=== PATIENT | female | born 1955 | race African-American/Black ===

== ENCOUNTER → 2016-12-30 | Emergency (ER) | payer MEDICARE, MEDICAID ==
[~2016-12-30] MED LIST: ALB5IS NEB; ASPI81CH43; CALCIUM CARBONATE VITAMIN D PO; CHOL400T PO; FLUT250M2 IN; GICOCKTAIL PO; LIS10T PO; LISI10TA6 PO; LOR05T PO; NIC21P TD; OME20GT PO; OXY5T PO; PRE5T GT
== END | disposition left against medical advice (07) ==
LOC: ER 22:10
DX: S61.432A Puncture wound without foreign body of left hand, initial encounter (principal); Z53.21 Procedure and treatment not carried out due to patient leaving prior to being seen by health care provider; X58.XXXA Exposure to other specified factors, initial encounter; Y93.89 Activity, other specified; Y99.8 Other external cause status; Y92.89 Other specified places as the place of occurrence of the external cause

== ENCOUNTER 2017-01-16 05:12 | Emergency (ER) | payer MEDICARE, MEDICAID ==
[~2017-01-16] VITALS: Ht 162.6 cm; Wt 70.3 kg
[2017-01-16 05:30] VITALS: BP 164/101
== END 2017-01-16 06:32 | disposition left against medical advice (07) ==
LOC: EDBD 05:12 → ER 05:12
DX: M54.2 Cervicalgia (principal); R51 Headache; Z53.21 Procedure and treatment not carried out due to patient leaving prior to being seen by health care provider

== ENCOUNTER 2017-05-11 17:51 | Emergency (ER) | payer MEDICARE, MEDICAID ==
[~2017-05-11] VITALS: Ht 160 cm; Wt 63.5 kg
[~2017-05-11 17:51] MED LIST changes: -LOR05T PO; +LORA-654 PO
[2017-05-11 18:24] VITALS: BP 175/96
[2017-05-11] MEDS ORDERED: PROMETHAZINE HCL 25 MG/ML 1ML IV ONE (18:30)
[2017-05-11] MEDS ORDERED: KETOROLAC TROMETH 30 MG/ML 1ML VIAL IV ONE (18:30)
== END 2017-05-11 19:31 | disposition home or self-care (01) ==
LOC: EDBD 17:51 → EDUNIT# 17:51 → ER 17:58
DX: J32.9 Chronic sinusitis, unspecified (principal); F17.210 Nicotine dependence, cigarettes, uncomplicated; M19.90 Unspecified osteoarthritis, unspecified site; I11.0 Hypertensive heart disease with heart failure; I50.9 Heart failure, unspecified; I25.2 Old myocardial infarction; T78.40XA Allergy, unspecified, initial encounter; J44.9 Chronic obstructive pulmonary disease, unspecified; I25.10 Atherosclerotic heart disease of native coronary artery without angina pectoris; Z79.82 Long term (current) use of aspirin; Z90.710 Acquired absence of both cervix and uterus; Z88.6 Allergy status to analgesic agent; Z79.899 Other long term (current) drug therapy; X58.XXXA Exposure to other specified factors, initial encounter
CPT/HCPCS: 70450; 96374; 96375; 99284; J1885; J2550

== ENCOUNTER 2018-03-24 06:39 | Emergency (ER) | payer MEDICARE, MEDICAID ==
[~2018-03-24] VITALS: Ht 175.3 cm; Wt 65.8 kg
[2018-03-24 06:53] VITALS: BP 126/84
[2018-03-24] MEDS ORDERED: KETOROLAC TROMETH 30 MG/ML 1ML VIAL IM ONE (07:15)
[2018-03-24] MEDS ORDERED: oxyCODONE ER 10 MG TAB PO ONE (07:15)
[2018-03-24] MEDS ORDERED: methylPREDNISolone SOD SUCC 125 MG/2 ML VL IM ONE (07:30)
== END 2018-03-24 09:08 | disposition home or self-care (01) ==
LOC: EDBD 06:39 → ER 06:39
DX: M25.461 Effusion, right knee (principal); M13.861 Other specified arthritis, right knee; I11.0 Hypertensive heart disease with heart failure; I50.9 Heart failure, unspecified; J44.9 Chronic obstructive pulmonary disease, unspecified; I25.2 Old myocardial infarction; I25.10 Atherosclerotic heart disease of native coronary artery without angina pectoris; F17.210 Nicotine dependence, cigarettes, uncomplicated; Z90.710 Acquired absence of both cervix and uterus; Z88.6 Allergy status to analgesic agent
CPT/HCPCS: 73562; 96372; 99284; J1885; J2930

== ENCOUNTER 2018-08-17 03:18 | Emergency (ER) | payer MEDICARE, MEDICAID ==
[~2018-08-17] VITALS: Ht 167.6 cm; Wt 81.6 kg
[2018-08-17] MEDS ORDERED: SODIUM CHLORIDE 0.9% 1,000 ML IV ONE (07:46)
[2018-08-17] MEDS ORDERED: KETOROLAC TROMETH 30 MG/ML 1ML VIAL IV ONE (08:00)
[2018-08-17] MEDS ORDERED: PROMETHAZINE HCL 25 MG/ML 1ML IV PRN (08:00)
[2018-08-17 08:17] LABS: Eosinophils # (auto) 0 uL; Monocytes # (auto) 0.4 uL; Neutrophils # (auto) 3.5 uL
[2018-08-17 08:19] LABS: Basophils # (auto) 0.1 uL; Basophils % (auto) 1.1 % (0.0-2.0); Eosinophils % (auto) 0.5 % (0.0-7.0); Hematocrit 40.2 % (36.0-46.0); Hemoglobin 12.8 g/dL (12.2-16.2); Lymphocytes % (auto) 20.8 % (10.0-50.0); Mean Corpuscular Hemoglobin 25.3 pg (28.0-32.0); Mean Corpuscular Hgb Conc. 31.8 g/dL (32.0-36.0); Mean Corpuscular Volume 79.6 fL (80.0-100.0); Monocytes % (auto) 7.6 % (0.0-12.0); Nucleated Red Blood Cells % 0.2 %; Platelet Count (auto) 143 10^3/uL (140-450); Red Blood Cells 5.05 10^6/uL (4.0-5.20); Red Cell Distribution Width 14.4 % (11.8-14.3)
[2018-08-17 08:31] LABS: Albumin 3.3 g/dL (3.4-5.0); Anion Gap 8 (5-15); Aspartate Aminotransferase 22 U/L (15-37); Blood Urea Nitrogen 12 mg/dL (7-18); Calcium 8.5 mg/dL (8.5-10.1); Carbon Dioxide 22 mmol/L (21-32); Chloride 111 mmol/L (98-107); GFR African American 122 mL/min; GFR Non-African American 101 mL/min; Glucose 92 mg/dL (74-106); Lipase 191 U/L (73-393); Magnesium 2.3 mg/dL (1.6-2.6); Potassium 3.6 mmol/L (3.5-5.1); Sodium 141 mmol/L (136-145)
[2018-08-17 08:34] LABS: Alanine Aminotransferase 34 U/L (13-56); Alkaline Phosphatase 53 U/L (45-117); Bilirubin, Total 0.4 mg/dL (0.2-1.0)
[2018-08-17] MEDS ORDERED: LORazepam 0.5 MG TAB PO ONE (10:30)
[2018-08-17] MEDS ORDERED: cloNIDine HCL 0.1 MG TAB PO ONE (10:30)
[2018-08-17 11:05] VITALS: BP 152/89
[2018-08-17] MEDS ORDERED: MORPHINE SULFATE 4 MG/ML SYR/VIAL ONE (11:23)
[2018-08-17] MEDS ORDERED: NALBUPHINE HCL 10 MG/1ml INJECTION ONE (11:27)
[2018-08-17] MEDS ORDERED: NALBUPHINE HCL 10 MG/1ml INJECTION IV ONE (11:30)
[2018-08-17 11:35] LABS: Urine Bacteria FEW /hpf (None Seen); Urine Blood Negative /uL (Negative); Urine Mucus FEW (None Seen); Urine Specific Gravity 1.016 (1.001-1.035); Urine WBC 1 /hpf (0 - 5)
== END 2018-08-17 10:16 | disposition short-term general hospital (02) ==
LOC: EDBD 03:18 → EDSEX 03:18 → ER 03:18
DX: S22.089A Unspecified fracture of T11-T12 vertebra, initial encounter for closed fracture (principal); J44.9 Chronic obstructive pulmonary disease, unspecified; F41.9 Anxiety disorder, unspecified; I11.0 Hypertensive heart disease with heart failure; I50.9 Heart failure, unspecified; I25.2 Old myocardial infarction; F17.210 Nicotine dependence, cigarettes, uncomplicated; Z88.1 Allergy status to other antibiotic agents; Z90.710 Acquired absence of both cervix and uterus; Z88.6 Allergy status to analgesic agent; Z79.82 Long term (current) use of aspirin; Z79.899 Other long term (current) drug therapy; V47.6XXA Car passenger injured in collision with fixed or stationary object in traffic accident, initial encounter; Y93.89 Activity, other specified; Y92.488 Other paved roadways as the place of occurrence of the external cause; Y99.8 Other external cause status
CPT/HCPCS: 36415; 72070; 72100; 72128; 72170; 80053; 81001; 83690; 83735; 85025; 96374; 96375; 99285; J1885; J2270; J2300; J2550; J7030

== ENCOUNTER 2019-05-07 19:18 | Emergency (ER) | payer OTHER, MEDICAID ==
[~2019-05-07] VITALS: Ht 162.6 cm; Wt 74.8 kg
[~2019-05-07 19:18] MED LIST changes: +AMIO200T33 PO; +APIX5TAB OR; -LIS10T PO; -LORA-654 PO; +LORA0.5T12 PO
[2019-05-07] MEDS ORDERED: methylPREDNISolone SOD SUCC 125 MG/2 ML VL IV ONE (20:00)
[2019-05-07] MEDS ORDERED: IPRATROPIUM BROM 0.5 MG/2.5ML INH SOL NEB ONE (20:15)
[2019-05-07] MEDS ORDERED: ALBUTEROL SULF 2.5 MG/0.5ML(0.5%) NEB SOLN NEB ONE (20:15)
[2019-05-07 21:22] LABS: Basophils # (auto) 0 uL; Eosinophils # (auto) 0 uL; Eosinophils % (auto) 0.5 % (0.0-7.0); Hemoglobin 12.4 g/dL (12.2-16.2); Monocytes # (auto) 0.3 uL; Neutrophils # (auto) 2.3 uL; Neutrophils % (auto) 63.9 % (37.0-80.0)
[2019-05-07 21:24] LABS: Basophils % (auto) 0.4 % (0.0-2.0); Hematocrit 39.5 % (36.0-46.0); Lymphocytes % (auto) 26.3 % (10.0-50.0); Mean Corpuscular Hemoglobin 24.9 pg (28.0-32.0); Mean Corpuscular Hgb Conc. 31.5 g/dL (32.0-36.0); Monocytes % (auto) 8.9 % (0.0-12.0); Nucleated Red Blood Cells % 0.4 %; Platelet Count (auto) 165 10^3/uL (140-450); White Blood Cell 3.6 10^3/uL (4.4-10.8)
[2019-05-07 21:26] LABS: INR 0.98 (0.9-1.15); Partial Thromboplastin Time 29.4 sec (23.64-32.05)
[2019-05-07] MEDS ORDERED: FUROSEMIDE 40 MG/4 ML VIAL IV ONE (21:30)
[2019-05-07 21:33] LABS: Alanine Aminotransferase 39 U/L (13-56); Albumin 3.4 g/dL (3.4-5.0); Anion Gap 6 (5-15); Blood Urea Nitrogen 14 mg/dL (7-18); Calcium 8.5 mg/dL (8.5-10.1); Carbon Dioxide 28 mmol/L (21-32); Chloride 108 mmol/L (98-107); Glucose 97 mg/dL (74-106); Potassium 3.1 mmol/L (3.5-5.1); Sodium 142 mmol/L (136-145)
[2019-05-07 21:40] LABS: Alkaline Phosphatase 65 U/L (45-117); Aspartate Aminotransferase 26 U/L (15-37); BUN/Creatinine Ratio 15.4; Bilirubin, Total 0.4 mg/dL (0.2-1.0); GFR African American 80 mL/min; GFR Non-African American 66 mL/min; Total Protein 7.4 g/dL (6.4-8.2)
[2019-05-07] MEDS ORDERED: HYDROmorphone HCL 2 MG/ML VL IV ONE (22:00)
[2019-05-07] MEDS ORDERED: ONDANSETRON HCL 4 MG/2 ML VIAL IV ONE (22:00)
[2019-05-07 22:19] LABS: Urine Bacteria NONE SEEN /hpf (None Seen); Urine Blood Negative /uL (Negative); Urine Mucus MODERATE (None Seen); Urine Specific Gravity 1.021 (1.001-1.035); Urine WBC 10 /hpf (0 - 5)
[2019-05-07] MEDS ORDERED: LABETALOL HCL 5 MG/ML ML 20ML VIAL IV ONE (23:15)
[2019-05-08 00:32] VITALS: BP 149/89
== END 2019-05-08 00:39 | disposition home or self-care (01) ==
LOC: EDBD 19:18 → ER 19:22
DX: I16.0 Hypertensive urgency (principal); N39.0 Urinary tract infection, site not specified; G89.4 Chronic pain syndrome; I48.91 Unspecified atrial fibrillation; I11.0 Hypertensive heart disease with heart failure; I50.9 Heart failure, unspecified; J44.9 Chronic obstructive pulmonary disease, unspecified; I25.2 Old myocardial infarction; F17.210 Nicotine dependence, cigarettes, uncomplicated; Z86.73 Personal history of transient ischemic attack (TIA), and cerebral infarction without residual deficits; Z97.10 Presence of artificial limb (complete) (partial), unspecified; Z88.6 Allergy status to analgesic agent; Z88.1 Allergy status to other antibiotic agents
CPT/HCPCS: 36415; 71045; 71250; 80053; 81001; 83880; 84484; 85025; 85379; 85610; 85730; 86141; 96374; 96375; 99284; J1170; J1940; J2405; J2930; J7611; J7644

== ENCOUNTER 2022-07-29 09:02 | Inpatient (IN) | payer OTHER, MEDICAID ==
[~2022-07-29] VITALS: Ht 160 cm; Wt 75.0 kg
[~2022-07-29 09:02] MED LIST changes: +LISI-716 PO; -LISI10TA6 PO; -LORA0.5T12 PO; +LORA0.5T20 PO
[2022-07-29 09:55] LABS: Basophils # (auto) 0 10 ^3/uL (0-0.2); Basophils % (auto) 0.3 % (0.0-2.0); Eosinophils # (auto) 0 10 ^3/uL (0-0.8); Hemoglobin 12.2 g/dL (12.2-16.2); Neutrophils # (auto) 3.8 10 ^3/uL (1.6-8.6)
[2022-07-29 09:59] LABS: Eosinophils % (auto) 0.2 % (0.0-7.0); Hematocrit 39.1 % (36.0-46.0); Lymphocytes # (auto) 0.8 10 ^3/uL (0.4-5.4); Lymphocytes % (auto) 15.5 % (10.0-50.0); Mean Corpuscular Hemoglobin 23.6 pg (28.0-32.0); Mean Corpuscular Hgb Conc. 31.3 g/dL (32.0-36.0); Mean Corpuscular Volume 75.6 fL (80.0-100.0); Monocytes # (auto) 0.5 10 ^3/uL (0-1.3); Monocytes % (auto) 9.7 % (0.0-12.0); Neutrophils % (auto) 74.3 % (37.0-80.0); Red Blood Cells 5.18 10^6/uL (4.0-5.20); Red Cell Distribution Width 15.2 % (11.8-14.3); White Blood Cell 5.1 10^3/uL (4.4-10.8)
[2022-07-29] MEDS ORDERED: SODIUM CHLORIDE 0.9% 1,000 ML IV ONE (11:00)
[2022-07-29] MEDS ORDERED: SODIUM CHLORIDE 0.9% 500 ML IVB ONE (11:00)
[2022-07-29] MEDS ORDERED: ONDANSETRON HCL 4 MG/2 ML VIAL IV ONE (11:00)
[2022-07-29 11:28] LABS: INR 1.06 (0.9-1.15); Partial Thromboplastin Time 26.8 sec (24.6-33.4)
[2022-07-29 11:31] LABS: Alanine Aminotransferase 18 U/L (13-56); Albumin 3.5 g/dL (3.4-5.0); Anion Gap 9 (5-15); Aspartate Aminotransferase 17 U/L (15-37); BUN/Creatinine Ratio 15.2; Blood Urea Nitrogen 12 mg/dL (7-18); Calcium 8.6 mg/dL (8.5-10.1); Carbon Dioxide 24 mmol/L (21-32); Chloride 103 mmol/L (98-107); GFR African American 93 mL/min; GFR Non-African American 77 mL/min; Glucose 113 mg/dL (74-106); Lipase 189 U/L (73-393); Potassium 3.3 mmol/L (3.5-5.1); Sodium 136 mmol/L (136-145)
[2022-07-29 11:33] LABS: Alkaline Phosphatase 63 U/L (45-117); Bilirubin, Total 0.3 mg/dL (0.2-1.0); Total Protein 7.8 g/dL (6.4-8.2)
[2022-07-29] MEDS ORDERED: [UNRECOGNIZED DRUG - CODE] PO (15:12)
[2022-07-29] MEDS ORDERED: VALS320T32 PO (15:12)
[2022-07-29] MEDS ORDERED: SUL500T PO (15:12)
[2022-07-29] MEDS ORDERED: AMLO-489 PO (15:12)
[2022-07-29] MEDS ORDERED: HYDR12.55 PO (15:12)
[2022-07-29] MEDS: SODIUM CHLORIDE 0.9% 1,000 ML IV SCH (15:15)
[2022-07-29] MEDS ORDERED: POTASSIUM CHL 20 Meq TABLET PO ONE (15:15)
[2022-07-29] MEDS ORDERED: PANTOPRAZOLE 40 MG/10 ML VIAL INJ IV ONE (15:30)
[2022-07-29] MEDS ORDERED: KETOROLAC TROMETH 30 MG/ML 1ML VIAL IV PRN (15:30)
[2022-07-29] MEDS ORDERED: NITROGLYCERIN 0.4 MG SL TAB SL PRN (15:30)
[2022-07-29] MEDS ORDERED: hydrALAZINE HCL 20 MG/ML VL IV PRN (15:30)
[2022-07-29] MEDS ORDERED: ALBUTEROL SULF 2.5 MG/0.5ML(0.5%) NEB SOLN NEB PRN (15:30)
[2022-07-29 15:36] VITALS: BP 152/68
[2022-07-29] MEDS ORDERED: ACETAMINOPHEN 500 MG TAB PO PRN (15:45)
[2022-07-29 15:53] LABS: Urine Bacteria MOD /hpf (None Seen); Urine Blood 1+ /uL (Negative); Urine Mucus FEW (None Seen); Urine Specific Gravity 1.011 (1.001-1.035); Urine WBC 49 /hpf (0 - 5)
[2022-07-29] MEDS ORDERED: REMDESIVIR PER PHARMACY 0 ML IV SCH (16:15)
[2022-07-29] MEDS ORDERED: REMDESIVIR 200 MG in NS 210ml LOADING DOSE ADULT IV ONE (18:00)
[2022-07-29 18:05] LABS: Cholesterol 129 mg/dL (< 200); HDL Cholesterol 58 mg/dL (40-59); LDL Cholesterol 69 mg/dL (< 100); Triglycerides 105 mg/dL (< 150)
[2022-07-29 18:06] LABS: CRP High Sensitivity > 0.950 mg/dL (< 0.3)
[2022-07-29 18:17] LABS: % Iron Saturation 6.9 % (15-50)
[2022-07-29] MEDS ORDERED: HEPARIN SODIUM (PORCINE) 5000 UNITS/ML 1ML VIAL SC SCH (22:00)
[2022-07-29] MEDS: BUDESONIDE (INHALATION) 180 MCG IH IN SCH (22:12)
[2022-07-29] MEDS: ALBUTEROL SULF HFA 90MCG INH 200DOSE IN PRN (22:13)
[2022-07-29] MEDS: HEPARIN SODIUM (PORCINE) 5000 UNITS/ML 1ML VIAL SC SCH (22:16)
[2022-07-29] MEDS: FLUTICASONE IN SCH (23:45)
[2022-07-29] MEDS: SALMETEROL IN SCH (23:45)
[2022-07-30] VITALS (8 sets, daily range): BP systolic 127–154; BP diastolic 70–82
[2022-07-30] MEDS: SODIUM CHLORIDE 0.9% 1,000 ML IV SCH ×3 (01:40→20:50)
[2022-07-30] MEDS: HEPARIN SODIUM (PORCINE) 5000 UNITS/ML 1ML VIAL SC SCH ×3 (06:25→22:02)
[2022-07-30 07:33] LABS: Hematocrit 38.6 % (36.0-46.0); Mean Corpuscular Hemoglobin 23.4 pg (28.0-32.0); Mean Corpuscular Hgb Conc. 31.2 g/dL (32.0-36.0); Red Blood Cells 5.15 10^6/uL (4.0-5.20); Red Cell Distribution Width 14.8 % (11.8-14.3); White Blood Cell 3.3 10^3/uL (4.4-10.8)
[2022-07-30 07:46] LABS: Potassium 3.4 mmol/L (3.5-5.1)
[2022-07-30 07:53] LABS: Albumin 3.4 g/dL (3.4-5.0); BUN/Creatinine Ratio 15.3; Calcium 8.7 mg/dL (8.5-10.1)
[2022-07-30 08:12] LABS: Basophils % (manual) 0 (0.0-2.0); Blast Cells 0; Eosinophils % (manual) 0 (0-7); Metamyelocytes % 0; Promyelocytes % 0
[2022-07-30 08:16] LABS: Bilirubin, Total 0.5 mg/dL (0.2-1.0); Total Protein 7.3 g/dL (6.4-8.2)
[2022-07-30 08:49] LABS: Band Neutrophils % (manual) 5; Lymphocytes % (manual) 24 (10.0-50.0); Monocytes % (manual) 13 (0-12); Myelocytes % 1; Reactive Lymphocytes 7
[2022-07-30] MEDS: BUDESONIDE (INHALATION) 180 MCG IH IN SCH ×2 (09:19→18:59)
[2022-07-30] MEDS: ALBUTEROL SULF HFA 90MCG INH 200DOSE IN PRN ×2 (09:19→19:00)
[2022-07-30] MEDS ORDERED: VALSARTAN HYDROCHLOROTHIAZIDE PO SCH (10:00)
[2022-07-30] MEDS: SALMETEROL IN SCH ×2 (10:00→22:17)
[2022-07-30] MEDS: ASPirin 81 mg TAB PO SCH (10:00)
[2022-07-30] MEDS: PANTOPRAZOLE 40 MG/10 ML VIAL INJ IV SCH (10:00)
[2022-07-30] MEDS: FLUTICASONE IN SCH ×2 (10:00→22:17)
[2022-07-30] MEDS ORDERED: amLODIPine BESYLATE 5 MG TAB PO SCH (10:00)
[2022-07-30] MEDS: LISINOPRIL 10 MG TAB PO SCH (10:00)
[2022-07-30] MEDS ORDERED: AMLODIPINE BESYLATE VALSARTAN PO SCH (10:00)
[2022-07-30] MEDS: DexAMETHasone SOD PHOS 10MG/1ML VIAL INJ IV SCH (10:36)
[2022-07-30] MEDS: HCTZ 25 MG TAB PO SCH (10:40)
[2022-07-30] MEDS: NICOTINE 7MG/24HR TOPICAL PATCH TD SCH (10:41)
[2022-07-30] MEDS: REMDESIVIR 100mg 100 MG in SODIUM CHL 0.9% 230 ML IV SCH (15:00)
[2022-07-30 15:06] LABS: Hepatitis C Antibody Positive (Negative)
[2022-07-30] MEDS ORDERED: HYDROmorphone HCL 2 MG/ML VL/or syr IV PRN ×2 (15:30)
[2022-07-30] MEDS: amLODIPine BESYLATE 5 MG TAB PO SCH (20:50)
[2022-07-30] MEDS ORDERED: PANTOPRAZOLE 40 MG TAB PO SCH (22:00)
[2022-07-31 05:12] VITALS: BP 133/78
[2022-07-31 05:31] LABS: Basophils # (auto) 0 10 ^3/uL (0-0.2); Basophils % (auto) 0.2 % (0.0-2.0); Eosinophils # (auto) 0 10 ^3/uL (0-0.8); Lymphocytes # (auto) 0.7 10 ^3/uL (0.4-5.4); Mean Corpuscular Volume 75.5 fL (80.0-100.0); Monocytes # (auto) 0.3 10 ^3/uL (0-1.3); White Blood Cell 2.1 10^3/uL (4.4-10.8)
[2022-07-31 05:34] LABS: Hematocrit 38.3 % (36.0-46.0); Hemoglobin 11.8 g/dL (12.2-16.2); Lymphocytes % (auto) 36.2 % (10.0-50.0); Mean Corpuscular Hemoglobin 23.2 pg (28.0-32.0); Mean Corpuscular Hgb Conc. 30.8 g/dL (32.0-36.0); Monocytes % (auto) 13.6 % (0.0-12.0); Red Blood Cells 5.07 10^6/uL (4.0-5.20); Red Cell Distribution Width 14.8 % (11.8-14.3)
[2022-07-31 05:50] LABS: Albumin 3.3 g/dL (3.4-5.0); Calcium 9.1 mg/dL (8.5-10.1); Potassium 4.2 mmol/L (3.5-5.1)
[2022-07-31 05:53] LABS: BUN/Creatinine Ratio 20.3
[2022-07-31 05:56] LABS: Bilirubin, Total 0.3 mg/dL (0.2-1.0); Total Protein 6.9 g/dL (6.4-8.2)
[2022-07-31] MEDS: HEPARIN SODIUM (PORCINE) 5000 UNITS/ML 1ML VIAL SC SCH ×3 (06:10→22:00)
[2022-07-31] MEDS: ALBUTEROL SULF HFA 90MCG INH 200DOSE IN PRN ×2 (06:43→22:42)
[2022-07-31] MEDS: BUDESONIDE (INHALATION) 180 MCG IH IN SCH ×2 (06:43→22:43)
[2022-07-31 09:00] VITALS: BP 130/69
[2022-07-31] MEDS: SALMETEROL IN SCH (10:00)
[2022-07-31] MEDS: FLUTICASONE IN SCH (10:00)
[2022-07-31] MEDS: LISINOPRIL 10 MG TAB PO SCH (10:00)
[2022-07-31] MEDS: PANTOPRAZOLE 40 MG/10 ML VIAL INJ IV SCH (11:49)
[2022-07-31] MEDS: DexAMETHasone SOD PHOS 10MG/1ML VIAL INJ IV SCH (11:49)
[2022-07-31] MEDS: ASPirin 81 mg TAB PO SCH (11:50)
[2022-07-31] MEDS: HCTZ 25 MG TAB PO SCH (11:51)
[2022-07-31] MEDS: amLODIPine BESYLATE 5 MG TAB PO SCH (11:52)
[2022-07-31] MEDS: NICOTINE 7MG/24HR TOPICAL PATCH TD SCH (11:53)
[2022-07-31] MEDS: SODIUM CHLORIDE 0.9% 1,000 ML IV SCH (12:40)
[2022-07-31 13:00] VITALS: BP 138/79
[2022-07-31] MEDS: REMDESIVIR 100mg 100 MG in SODIUM CHL 0.9% 230 ML IV SCH (16:32)
[2022-07-31] MEDS: HYDROmorphone HCL 2 MG/ML VL/or syr IV PRN ×2 (16:50→19:52)
[2022-07-31 17:00] VITALS: BP 147/80
[2022-07-31 20:00] VITALS: BP 138/78
[2022-07-31 22:00] VITALS: BP 138/78
[2022-08-01] VITALS (8 sets, daily range): BP systolic 137–152; BP diastolic 79–89
[2022-08-01] MEDS: HYDROmorphone HCL 2 MG/ML VL/or syr IV PRN ×6 (01:35→21:42)
[2022-08-01] MEDS: SODIUM CHLORIDE 0.9% 1,000 ML IV SCH ×2 (05:20→22:00)
[2022-08-01] MEDS: HEPARIN SODIUM (PORCINE) 5000 UNITS/ML 1ML VIAL SC SCH ×3 (06:04→21:40)
[2022-08-01 06:29] LABS: Basophils # (auto) 0 10 ^3/uL (0-0.2); Basophils % (auto) 0.1 % (0.0-2.0); Eosinophils # (auto) 0 10 ^3/uL (0-0.8); Hemoglobin 10.9 g/dL (12.2-16.2); Nucleated Red Blood Cells % 0.1 %
[2022-08-01 06:33] LABS: Hematocrit 35.3 % (36.0-46.0); Lymphocytes # (auto) 0.9 10 ^3/uL (0.4-5.4); Lymphocytes % (auto) 30.1 % (10.0-50.0); Mean Corpuscular Hemoglobin 22.9 pg (28.0-32.0); Mean Corpuscular Hgb Conc. 30.8 g/dL (32.0-36.0); Mean Corpuscular Volume 74.5 fL (80.0-100.0); Monocytes # (auto) 0.3 10 ^3/uL (0-1.3); Monocytes % (auto) 11.1 % (0.0-12.0); Neutrophils # (auto) 1.8 10 ^3/uL (1.6-8.6); Neutrophils % (auto) 58.7 % (37.0-80.0); Red Blood Cells 4.74 10^6/uL (4.0-5.20); Red Cell Distribution Width 14.7 % (11.8-14.3)
[2022-08-01 06:48] LABS: Albumin 3.3 g/dL (3.4-5.0); BUN/Creatinine Ratio 31.9; Calcium 8.8 mg/dL (8.5-10.1); Potassium 3.5 mmol/L (3.5-5.1)
[2022-08-01 06:50] LABS: Bilirubin, Total 0.3 mg/dL (0.2-1.0); Total Protein 7.2 g/dL (6.4-8.2)
[2022-08-01] MEDS: ASPirin 81 mg TAB PO SCH (09:32)
[2022-08-01] MEDS: LISINOPRIL 10 MG TAB PO SCH (09:33)
[2022-08-01] MEDS: amLODIPine BESYLATE 5 MG TAB PO SCH (09:33)
[2022-08-01] MEDS: NICOTINE 7MG/24HR TOPICAL PATCH TD SCH (09:34)
[2022-08-01] MEDS: PANTOPRAZOLE 40 MG/10 ML VIAL INJ IV SCH (09:34)
[2022-08-01] MEDS: DexAMETHasone SOD PHOS 10MG/1ML VIAL INJ IV SCH (09:34)
[2022-08-01] MEDS: BUDESONIDE (INHALATION) 180 MCG IH IN SCH ×2 (09:35→22:00)
[2022-08-01] MEDS: SALMETEROL IN SCH ×2 (09:39→10:00)
[2022-08-01] MEDS: FLUTICASONE IN SCH ×2 (09:39→10:00)
[2022-08-01] MEDS: ALBUTEROL SULF HFA 90MCG INH 200DOSE IN PRN (10:45)
[2022-08-01] MEDS: HCTZ 25 MG TAB PO SCH (11:13)
[2022-08-01] MEDS: REMDESIVIR 100mg 100 MG in SODIUM CHL 0.9% 230 ML IV SCH (16:18)
[2022-08-01 21:14] LABS: CRP High Sensitivity 1.75 mg/dL (< 0.3)
[2022-08-01] MEDS ORDERED: HEPARIN SODIUM (PORCINE) 5000 UNITS/ML 1ML VIAL ONE (21:22)
[2022-08-02] MEDS: HYDROmorphone HCL 2 MG/ML VL/or syr IV PRN ×5 (01:16→22:32)
[2022-08-02 05:00] VITALS: BP 169/87
[2022-08-02] MEDS: HEPARIN SODIUM (PORCINE) 5000 UNITS/ML 1ML VIAL SC SCH ×3 (05:53→22:16)
[2022-08-02 06:39] LABS: Albumin 3.7 g/dL (3.4-5.0); BUN/Creatinine Ratio 22.7; Calcium 9.1 mg/dL (8.5-10.1); Potassium 3.6 mmol/L (3.5-5.1)
[2022-08-02 06:42] LABS: Bilirubin, Total 0.3 mg/dL (0.2-1.0); Total Protein 7.2 g/dL (6.4-8.2)
[2022-08-02 08:00] VITALS: BP 141/86
[2022-08-02 09:00] VITALS: BP 156/88
[2022-08-02] MEDS: LISINOPRIL 10 MG TAB PO SCH (10:00)
[2022-08-02] MEDS: BUDESONIDE (INHALATION) 180 MCG IH IN SCH ×2 (10:10→22:28)
[2022-08-02] MEDS: ALBUTEROL SULF HFA 90MCG INH 200DOSE IN PRN ×2 (10:10→22:28)
[2022-08-02] MEDS: DexAMETHasone SOD PHOS 10MG/1ML VIAL INJ IV SCH (10:18)
[2022-08-02] MEDS: ASPirin 81 mg TAB PO SCH (10:18)
[2022-08-02] MEDS: HCTZ 25 MG TAB PO SCH (10:20)
[2022-08-02] MEDS: amLODIPine BESYLATE 5 MG TAB PO SCH (10:21)
[2022-08-02] MEDS: NICOTINE 7MG/24HR TOPICAL PATCH TD SCH (10:23)
[2022-08-02] MEDS: PANTOPRAZOLE 40 MG/10 ML VIAL INJ IV SCH (10:23)
[2022-08-02] MEDS: FLUTICASONE IN SCH ×2 (10:24→22:31)
[2022-08-02] MEDS: SALMETEROL IN SCH ×2 (10:24→22:31)
[2022-08-02 10:27] LABS: Basophils # (auto) 0 10 ^3/uL (0-0.2); Eosinophils # (auto) 0 10 ^3/uL (0-0.8); Hemoglobin 11.5 g/dL (12.2-16.2); Neutrophils # (auto) 2.3 10 ^3/uL (1.6-8.6); White Blood Cell 3.8 10^3/uL (4.4-10.8)
[2022-08-02 10:28] LABS: Basophils % (auto) 0.7 % (0.0-2.0); Hematocrit 36.1 % (36.0-46.0); Lymphocytes # (auto) 1.1 10 ^3/uL (0.4-5.4); Lymphocytes % (auto) 29.2 % (10.0-50.0); Mean Corpuscular Hemoglobin 23.8 pg (28.0-32.0); Mean Corpuscular Hgb Conc. 31.8 g/dL (32.0-36.0); Mean Corpuscular Volume 74.7 fL (80.0-100.0); Monocytes # (auto) 0.3 10 ^3/uL (0-1.3); Monocytes % (auto) 8.7 % (0.0-12.0); Neutrophils % (auto) 61.4 % (37.0-80.0); Nucleated Red Blood Cells % 0.4 %; Red Blood Cells 4.84 10^6/uL (4.0-5.20); Red Cell Distribution Width 14.8 % (11.8-14.3)
[2022-08-02] MEDS: REMDESIVIR 100mg 100 MG in SODIUM CHL 0.9% 230 ML IV SCH (16:13)
[2022-08-02] MEDS: SODIUM CHLORIDE 0.9% 1,000 ML IV SCH (16:14)
[2022-08-02 17:00] VITALS: BP 154/83
[2022-08-02 17:37] LABS: Urine Bacteria FEW /hpf (None Seen); Urine Blood 1+ /uL (Negative); Urine Specific Gravity 1.006 (1.001-1.035); Urine WBC 4 /hpf (0 - 5)
[2022-08-02 22:00] VITALS: BP 138/72
[2022-08-03] MEDS: HYDROmorphone HCL 2 MG/ML VL/or syr IV PRN ×5 (03:04→20:55)
[2022-08-03] MEDS: SODIUM CHLORIDE 0.9% 1,000 ML IV SCH ×2 (04:55→21:01)
[2022-08-03 05:00] VITALS: BP 145/78
[2022-08-03] MEDS: HEPARIN SODIUM (PORCINE) 5000 UNITS/ML 1ML VIAL SC SCH ×3 (06:44→20:58)
[2022-08-03 09:00] VITALS: BP 159/87
[2022-08-03 09:47] LABS: Eosinophils # (auto) 0 10 ^3/uL (0-0.8); Hemoglobin 12.4 g/dL (12.2-16.2); Lymphocytes # (auto) 1.4 10 ^3/uL (0.4-5.4); Monocytes # (auto) 0.5 10 ^3/uL (0-1.3); Neutrophils # (auto) 2.5 10 ^3/uL (1.6-8.6); Red Blood Cells 5.26 10^6/uL (4.0-5.20)
[2022-08-03 09:49] LABS: Basophils # (auto) 0.1 10 ^3/uL (0-0.2); Basophils % (auto) 1.5 % (0.0-2.0); Hematocrit 39.3 % (36.0-46.0); Lymphocytes % (auto) 30.9 % (10.0-50.0); Mean Corpuscular Hemoglobin 23.7 pg (28.0-32.0); Mean Corpuscular Hgb Conc. 31.6 g/dL (32.0-36.0); Mean Corpuscular Volume 74.9 fL (80.0-100.0); Monocytes % (auto) 11.7 % (0.0-12.0); Neutrophils % (auto) 55.9 % (37.0-80.0); Nucleated Red Blood Cells % 0.3 %; Red Cell Distribution Width 14.5 % (11.8-14.3); White Blood Cell 4.5 10^3/uL (4.4-10.8)
[2022-08-03] MEDS: FLUTICASONE IN SCH ×2 (10:00→20:59)
[2022-08-03] MEDS: LISINOPRIL 10 MG TAB PO SCH (10:00)
[2022-08-03] MEDS: SALMETEROL IN SCH ×2 (10:00→20:59)
[2022-08-03] MEDS: PANTOPRAZOLE 40 MG/10 ML VIAL INJ IV SCH (10:07)
[2022-08-03] MEDS: DexAMETHasone SOD PHOS 10MG/1ML VIAL INJ IV SCH (10:07)
[2022-08-03] MEDS: HCTZ 25 MG TAB PO SCH (10:08)
[2022-08-03] MEDS: ASPirin 81 mg TAB PO SCH (10:08)
[2022-08-03] MEDS: amLODIPine BESYLATE 5 MG TAB PO SCH (10:09)
[2022-08-03] MEDS: NICOTINE 7MG/24HR TOPICAL PATCH TD SCH (10:10)
[2022-08-03 10:31] LABS: Folate (Folic Acid) > 24.00 ng/mL (5.38-24)
[2022-08-03] MEDS: BUDESONIDE (INHALATION) 180 MCG IH IN SCH (11:07)
[2022-08-03 13:00] VITALS: BP 158/87
[2022-08-03 16:53] VITALS: BP 138/88
[2022-08-03] MEDS ORDERED: CALC-315 OR (21:29)
[2022-08-03 21:57] VITALS: BP 144/64
== END 2022-08-03 22:30 | disposition home or self-care (01) | DRG 177 ==
LOC: ER 09:02 → EDBD 09:02 → TELE 15:20 → TELE-EAST 07-30 01:18
PROVIDERS: ADMIT Registered Nurse; ATTEND Internal Medicine Infectious Disease
PROC: XW033E5 Introduction of Remdesivir Anti-infective into Peripheral Vein, Percutaneous Approach, New Technology Group 5 (ICD-10-PCS; principal; 2022-07-30)
DX: U07.1 COVID-19 (principal); J12.82 Pneumonia due to coronavirus disease 2019; F11.20 Opioid dependence, uncomplicated; N39.0 Urinary tract infection, site not specified; E66.2 Morbid (severe) obesity with alveolar hypoventilation; K80.20 Calculus of gallbladder without cholecystitis without obstruction; D50.9 Iron deficiency anemia, unspecified; D69.6 Thrombocytopenia, unspecified; K21.9 Gastro-esophageal reflux disease without esophagitis; E87.6 Hypokalemia; F17.210 Nicotine dependence, cigarettes, uncomplicated; J43.9 Emphysema, unspecified; I25.10 Atherosclerotic heart disease of native coronary artery without angina pectoris; I48.91 Unspecified atrial fibrillation; I50.9 Heart failure, unspecified; I11.0 Hypertensive heart disease with heart failure; N20.0 Calculus of kidney; N28.1 Cyst of kidney, acquired; K52.9 Noninfective gastroenteritis and colitis, unspecified; D72.819 Decreased white blood cell count, unspecified; Z88.6 Allergy status to analgesic agent; Z88.1 Allergy status to other antibiotic agents; Z82.49 Family history of ischemic heart disease and other diseases of the circulatory system; Z90.711 Acquired absence of uterus with remaining cervical stump; Z82.5 Family history of asthma and other chronic lower respiratory diseases; Z68.29 Body mass index [BMI] 29.0-29.9, adult
CPT/HCPCS: 36415; 70450; 71045; 74176; 76700; 76705; 80053; 80061; 81001; 82306; 82607; 82728; 82746; 83036; 83540; 83550; 83605; 83615; 83690; 83735; 83880; 84443; 85007; 85025; 85027; 85379; 85610; 85730; 86141; 86803; 87086; 87340; 87426; 93005; 94640; 95819; 96361; 96365; 96372; 96375; C9113; G0378; J1100; J1885; J2405

== ENCOUNTER 2025-04-14 12:33 | Inpatient (IN) | payer MEDICARE, MEDICAID ==
[~2025-04-14] VITALS: Ht 162.6 cm; Wt 79.3 kg
[~2025-04-14 12:33] MED LIST changes: +ALBU108A5 INH; +AMLO1TAB22 PO; -APIX5TAB OR; +AUG875T PO; +CALC-315 OR; -CALCIUM CARBONATE VITAMIN D PO; -CHOL400T PO; -FLUT250M2 IN; -GICOCKTAIL PO; +IBU600T PO; -LISI-716 PO; +LORA-1121 PO; -LORA0.5T20 PO; -OME20GT PO; +PANT40TA2 PO; -PRE5T GT; +PRED10TA PO; +SUL500T PO; +[UNRECOGNIZED DRUG - OTHER] MT
--- NOTE | 2025-04-14 13:12 | ED.PDOC ---
GI ASSESSMENT HPI Comments 70y F who presents to the ED via EMS for chief complaint of abdominal pain. Pt states she has been having abdominal pain for the past 4-5 days. Pt states she has diffuse abdominal pain, cramping and pressure like in nature, with no noted exacerbating or relieving factors. Pt has associated chest pain intermittent in nature, rating the pain 6-7/10, with no noted exacerbating or relieving factors. Pt has associated fever and chills but denies any other symptoms. Pt has BP of 148/72 with otherwise stable vitals. Pt denies any other symptoms. Chief Complaint: Flu like Time Seen by MD: 13:08 Primary Care Provider: Marcelo Reviewed Notes: E D Tech Notes, Medications, Allergies Allergies: Coded Allergies: Acetaminophen (Verified Allergy, Unknown, 03/18/22) Morphine (Verified Allergy, Unknown, 03/18/22) Tetracycline (Verified Allergy, Unknown, 03/18/22) Home Meds Active Scripts Mouthwashes (LISTERINE ULTRACLEAN/EVER) Ultracle Liq, 15 ML MT Q4HP PRN for 7 Days, #400 LIQ Prov:QIAN KESSLER MD 12/20/23 Pantoprazole Sodium Sesquihydr (Protonix) 40 Mg Tab, 40 MG PO DAILY, #30 TAB Prov:QIAN KESSLER MD 12/20/23 Ibuprofen Micronized (MOTRIN TABLET) 600 Mg Tb, 600 MG PO TID for 3 Days, #9 TAB *Black box warning-NSAIDS can increase risk of PA & hypertension, GI irritation, ulceration, bleed, perferation. Do not use post cardiac surgery. Use short duration/lowest effective dose. Prov:QIAN KESSLER MD 12/20/23 Amoxicillin & Pot Clavulanate (AUGMENTIN TABLET) 875 Mg Tb, 875 MG PO BID for 5 Days, #10 TAB 1 Refill Prov:QIAN KESSLER MD 12/20/23 Amiodarone Hcl (Amiodarone Hcl) 200 Mg Tab, 200 MG PO DAILY for 30 Days, #30 TAB Prov:QIAN KESSLER MD 12/20/23 Calcium Carbonate-Vitamin D (CALTRATE 600+D) +D Chw, 1 TAB OR BID, #100 TAB.CHEW 2 Refills Prov:QIAN KESSLER MD 1/20/23 Oxycodone Hcl (OXYCODONE HCL) 5 Mg Tb, 10 MG PO Q6HP PRN, #60 Prov:QIAN KESSLER MD 03/06/14 Nicotine (Nicoderm 21MG/24HR) 1 Patch Ph, 1 PATCH TD DAILY, #30 APPLIC Prov:QIAN KESSLER MD 03/06/14 Albuterol Sulfate (Ventolin) 2.5 Mg/0.5 Ml Nb, 2.5 MG NEB Q4HPRN PRN for WHEEZING, #60 INH Prov:QIAN KESSLER MD 03/06/14 Reported Medications Albuterol Sulfate (Albuterol Sulfate Hfa) 108 Mcg/Act Aer, INH 12/15/23 Prednisone (Prednisone) 10 Mg Tab, 1 TAB PO DAILY 12/15/23 Sulfasalazine (Azulfidine) 500 Mg Tb, 1 TAB PO DAILY 07/29/22 Amlodipine Besylate (Amlodipine Besylate) 5 Mg Tab, 1 TAB PO DAILY 07/29/22 Lorazepam (ATIVAN TABLET) 0.5 Mg Tb, 0.5 MG PO PRN for prn 03/03/14 Aspirin (Asa) 81 Mg Ch 09/28/10 Information Source: Patient, Emergency Med Personnel Mode of Arrival: EMS Brought in by: EMS Timing: Days Duration: Since onset Prehospital treatment: None Quality: Aching, Cramping Vomitus: None Stool: Normal Severity: Moderate Recent: None Recent Hx of: None Pain Location: Diffuse Modifying Factors: Nothing Associated sign and symptoms: Abdominal Pain, Fever, Other (chills, ) Past Medical History PAST MEDICAL HISTORY: AFIB, Arthritis, CAD, CHF, COPD, DM, HTN, Liver, PA Surgical History: Hysterectomy MENTAL HEALTH AIDE History: No Pertinent MENTAL HEALTH AIDE History Family History Family History: Family hx of Cancer, Family hx of heart gayle Family History (Other): COPD Social History Smoker: Cigarettes, Less Than 1 Pack/Day Alcohol: Denies ETOH Use Drugs: Denies Drug Use Lives In: Home Constitutional: reports: chills, fever; denies: diaphoresis, fatigue, malaise, sweats, weakness, others EENTM: denies: blurred vision, double vision, ear bleeding, ear discharge, ear drainage, ear pain, ear ringing, eye pain, eye redness, hearing loss, mouth pain, mouth swelling, nasal discharge, nose bleeding, nose congestion, nose pain, photophobia, tearing, throat pain, throat swelling, voice changes, others Respiratory: denies: cough, hemoptysis, orthopnea, SOB at rest, shortness of breath, SOB with excertion, stridor, wheezing, others Cardiovascular: reports: chest pain; denies: dizzy spells, diaphoresis, Dyspnea on exertion, edema, irregular heart beat, left arm pain, lightheadedness, palpitations, PND, syncope, others Gastrointestinal: reports: abdominal pain; denies: abdomen distended, blood streaked bowels, constipated, diarrhea, dysphagia, difficulty swallowing, hematemesis, melena, nausea, poor appetite, poor fluid intake, rectal bleeding, rectal pain, vomiting, others Genitourinary: denies: abnormal vagina bleeding, burning, dyspareunia, dysuria, flank pain, frequency, hematuria, incontinence, pain, , vagina discharge, urgency, others Neurological: denies: dizziness, fainting, headache, left sided numbness, left sided weakness, numbness, paresthesia, pre-existing deficit, right sided numbness, right sided weakness, seizure, speech problems, tingling, tremors, weakness, others Musculoskeletal: denies: back pain, gout, joint pain, joint swelling, muscle pain, muscle stiffness, neck pain, others Integumetry: denies: bruises, change in color, change in hair/nails, dryness, laceration, lesions, lumps, rash, wounds, others Allergic/Immunocompromised: denies: Difficulty Healing, Frequent Infections, Hives, Itching, others Hematologic/Lymphatic: denies: anemia, blood clots, easy bleeding, easy bruising, swollen glands, others Endocrine: denies: excessive hunger, excessive sweating, excessive thirst, excessive urination, flushing, intolerance to cold, intolerance to heat, unexplained weight gain, unexplained weight loss, others Psychiatric: denies: anxiety, bipolar disorder, depression, hopeless, panic disorder, schizophrenia, sleepless, suicidal, others All Other Systems: Reviewed and Negative Physical Exam General Appearance: Moderate Distress, Obese HEENT: Normal ENT Inspection, Pharynx Normal, TMs Normal Neck: Full Range of Motion, Non-Tender, Normal, Normal Inspection Respiratory: Chest Non-Tender, Lungs Clear, No Accessory Muscle Use, No Respiratory Distress, Normal Breath Sounds Cardiovascular: No Edema, No JVD, No Murmur, No Gallop, Normal Peripheral Pulses, Regular Rate/Rhythm Breast Exam: Deferred Gastrointestinal: Diffuse, No Organomegaly, No Pulsatile Mass, Normal Bowel Sounds, Soft, Tenderness Genitalia: Deferred Pelvic: Deferred Rectal: Deferred Extremities: No calf tenderness, Normal capillary refill, Normal inspection, Normal range of motion, Non-tender, No pedal edema Musculoskeletal : Apperance: Normal Neurologic: Alert, hay chopper II-XII nml as Tested, Motor Weakness, Normal Affect, Normal Mood, No Sensory Deficits Cerebellar Function: Normal Reflexes: Normal Skin: Dry, Normal Color, Warm Lymphatic: No Adenopathy Was a procedure done? Was a procedure done?: No GI differential Dx Differential Diagnosis: Cholangitis, Cholecystitis, Constipation, Diverticular disease, Gastritis/PUD, Gastroenteritis, Hernia, Pancreatitis, UTI, Dehydration, Food Poisoning, Bacterial, Viral, Stress Ulcer, Kidney Stone X-Ray, Labs, Meds, VS Vital Signs Date Time Temp Pulse Resp B/P (MAP) Pulse Ox O2 Delivery O2 Flow Rate FiO2 04/14/25 16:17 72 18 134/80 (98) 97 04/14/25 12:41 99.2 86 18 148/72 99 99.2 Lab Test 04/14/25 16:19 04/14/25 13:30 Range/Units Urine Color Yellow Yellow Urine Clarity Ex.turbid Clear Urine pH 7.5 5.0-9.0 Urine Specific [place] 1.016 1.001-1.035 Urine Protein Trace H Negative Urine Ketones Negative Negative Urine Blood Negative Negative /uL Urine Nitrite Negative Negative Urine Bilirubin Negative Negative Urine Urobilinogen Normal Negative mg/dL Urine Leukocyte Esterase Negative Negative /uL Urine RBC 2 0 - 4 /hpf Urine WBC Clumps Present None Seen /hpf Urine Microscopic WBC < 1 0-5 /HPF Urine Squamous Epithelial Cells Mod <5 /hpf Urine Triple Phosphate Crystals Mod None Seen /hpf Urine Amorphous Crystals Few None Seen /hpf Urine Bacteria None seen None Seen /hpf Urine Glucose Normal Normal mg/dL White Blood Count 3.4 L 4.4-10.8 10^3/uL Red Blood Count 4.98 4.0-5.20 10^6/uL Hemoglobin 12.1 L 12.2-16.2 g/dL Hematocrit 37.4 36.0-46.0 % Mean Corpuscular Volume 75.2 L 80.0-100.0 fL Mean Corpuscular Hemoglobin 24.3 L 28.0-32.0 pg Mean Corpuscular Hemoglobin Concent 32.3 32.0-36.0 g/dL Red Cell Distribution Width 14.8 H 11.8-14.3 % Platelet Count 187 140-450 10^3/uL Mean Platelet Volume 8.8 6.9-10.8 fL Neutrophils (%) (Auto) 67.4 37.0-80.0 % Lymphocytes (%) (Auto) 19.8 10.0-50.0 % Monocytes (%) (Auto) 11.8 0.0-12.0 % Eosinophils (%) (Auto) 0.5 0.0-7.0 % Basophils (%) (Auto) 0.5 0.0-2.0 % Neutrophils # (Auto) 2.3 1.6-8.6 10 ^3/uL Lymphocytes # (Auto) 0.7 0.4-5.4 10 ^3/uL Monocytes # (Auto) 0.4 0-1.3 10 ^3/uL Eosinophils # (Auto) 0 0-0.8 10 ^3/uL Basophils # (Auto) 0 0-0.2 10 ^3/uL Nucleated Red Blood Cells 0.4 % Sodium Level 142 136-145 mmol/L Potassium Level 3.8 3.5-5.1 mmol/L Chloride Level 106 98-107 mmol/L Carbon Dioxide Level 25 20-31 mmol/L Anion Gap 11 5-15 Blood Urea Nitrogen 12 9-23 mg/dL Creatinine 0.81 0.550-1.02 mg/dL Glomerular Filtration Rate Calc 78 >90 mL/min BUN/Creatinine Ratio 14.8 10.0-20.0 Serum Glucose 111 H 74-106 mg/dL Calcium Level 9.3 8.7-10.4 mg/dL Total Bilirubin 0.4 0.2-1.0 mg/dL Aspartate Amino Transferase (AST) 19 13-40 U/L Alanine Aminotransferase (ALT) 18 7-40 U/L Alkaline Phosphatase 69 46-116 U/L Troponin I High Sensitivity < 3 L </=34 ng/L Total Protein 7.9 5.7-8.2 g/dL Albumin 4.3 3.2-4.8 g/dL PROCEDURE(s): ABPL - CT AB PEL WO CON-NO ORAL OR IV Impression: No acute noncontrast CT abnormality in the abdomen or pelvis. Punctate right renal calculus. Cholelithiasis. Mild colonic diverticulosis. Small umbilical hernia containing fat Hysterectomy. At this time, the patient is being admitted to the hospitalist. The patient's primary care physician did come into the emergency department's and evaluate the patient is the patient is being admitted The troponin level is negative The CBC and chemistry panel is within normal limits The urine test is positive for white blood cells but no sign of any UTI The patient is being admitted at this time Images Reviewed?: Images reviewed and evaluated by me Time of 1ST Reevaluation: 13:40 Reevaluation 1ST: Unchanged Patient Education/Counseling: Diagnosis, Treatment Family Education/Counseling: No Family Present SEPSIS Sepsis Screen Date sepsis recognized/suspect: Apr 14, 2025 Time Sepsis recognized/suspect: 1240 Recent Procedure: No On Antibiotic Therapy: No Respiratory Rate >20: No Heart Rate >90: No Temp<36 C (96.8 F) or >38.3 C: No SBP <90 or MAP <65 mmHG: No New Acute Mental Status Change: No Is the patient on CPAP, BIPAP,: No Physician Orders Ct Ab Pel Wo Con-No Oral Or Iv (04/14/25 13:03) Heplock Iv (04/14/25 13:03) Electrocardigram (04/14/25 13:03) Admit (04/14/25 18:03) Nitroglycerin Sublingual (Ntrostat Subli (04/14/25 18:15) Morphine Sulfate Injection (04/14/25 18:15) Stat Ekg For Chest Pain (04/14/25 18:03) Notify Md Of Changes From Base (04/14/25 18:03) Assignment Editor For 24 Hours (04/14/25 18:03) Emergency Dysrhythmia Protocol (04/14/25 18:03) Rhythm Strips Once Every Shift (04/14/25 18:03) Oxygen By Nasal Cannula (04/14/25 18:03) Vital Signs Date Time Temp Pulse Resp B/P (MAP) Pulse Ox O2 Delivery O2 Flow Rate FiO2 04/14/25 16:17 72 18 134/80 (98) 97 04/14/25 12:41 99.2 86 18 148/72 99 99.2 Laboratory Tests Test 04/14/25 13:30 White Blood Count 3.4 10^3/uL (4.4-10.8) L Departure 1 Departure Time of Disposition: 18:25 Impression: Primary Impression: Autonomic dysfunction Additional Impression: Intractable abdominal pain Disposition: ADMITTED INPATIENT Admit to: Tele Condition: Fair Critical Care Note Critical Care Time?: No Stability Stability form required: Yes Unstable for transfer: Telemetry monitoring (Telemetry monitoring required), ED Physician Assesment (Clinical assesment) Heart Score Heart Score: Heart Score Response (Comments) Value History N/A 0 EKG N/A 0 Age N/A 0 Risk Factors N/A 0 Troponin N/A 0 Total 0 I personally scribed for KERRI GONZALEZ MD ([email or web address]) on 04/14/25 at 13:12. Electronically submitted by Kathi Magallanes ([employer]). I personally scribed for KERRI GONZALEZ MD ([email or web address]) on 04/14/25 at 15:26. Electronically submitted by Kathi Magallanes ([employer]). KERRI GONZALEZ MD Apr 14, 2025 13:12
[2025-04-14 13:47] LABS: Hematocrit 37.4 % (36.0-46.0); Hemoglobin 12.1 g/dL (12.2-16.2); Mean Corpuscular Hemoglobin 24.3 pg (28.0-32.0); Mean Corpuscular Volume 75.2 fL (80.0-100.0); Nucleated Red Blood Cells % 0.4 %
[2025-04-14 14:01] LABS: Alanine Aminotransferase 18 U/L (7-40); Alkaline Phosphatase 69 U/L (46-116); Anion Gap 11 (5-15); Calcium 9.3 mg/dL (8.7-10.4); Carbon Dioxide 25 mmol/L (20-31); Chloride 106 mmol/L (98-107); Potassium 3.8 mmol/L (3.5-5.1); Sodium 142 mmol/L (136-145); Total Protein 7.9 g/dL (5.7-8.2)
[2025-04-14 14:02] LABS: Albumin 4.3 g/dL (3.2-4.8); BUN/Creatinine Ratio 14.8 (10.0-20.0); Bilirubin, Total 0.4 mg/dL (0.2-1.0); Blood Urea Nitrogen 12 mg/dL (9-23); Glucose 111 mg/dL (74-106)
--- NOTE | 2025-04-14 15:08 | DVH ---
CLINICAL HISTORY: pain TECHNIQUE: CT of the abdomen and pelvis was performed without IV contrast. This exam was performed ac cording to our departmental dose optimization program. Up-to-date CT equipment and radiation dose red uction techniques are utilized as appropriate. CTDI 7.4 DLP 397 COMPARISON: ABDOMEN LIMITED on DOS: 08/01/22, ABDOMEN COMPLETE SONOGRAM on DOS: 07/29/22, CT ABD PELVIS WO CONTRAST on DOS: 07/29/22 FINDINGS: Abdomen/Pelvis: The spleen, pancreas, adrenal glands, liver, left kidney, and bladder are unremarkable. There are hypodense lesions in the right kidney, which are incompletely characterized due to lack of IV contrast. There is a 2 mm nonobstructing right renal calculus. There are nitrogen containing gallstones. The uterus is absent. The abdominal aorta is normal in caliber with mild atherosclerotic calcifications. There is no free intraperitoneal air or fluid. There is no enlarged abdominal pelvic lymph node. There is no bowel wall thickening or dilatation. The appendix is normal. There is mild colonic divert iculosis. There is a small focal hernia of the fat and loop of nonobstructed small bowel. Other: The imaged lower thorax 7 trace diffuse rather bilateral lower lung atelectasis and/or scar.. No acute osseous abnormality is evident. There is a [id number] chronic T12 vertebral body compr ession fracture. Impression: No acute noncontrast CT abnormality in the abdomen or pelvis. Punctate right renal calculus. Cholelithiasis. Mild colonic diverticulosis. Small umbilical hernia containing fat Hysterectomy.
[2025-04-14 17:18] LABS: Urine Amorphous Crystal FEW /hpf (None Seen); Urine Protein, UAD TRACE (Negative); Urine WBC Clumps PRESENT /hpf (None Seen)
[2025-04-14] MEDS ORDERED: ALBUTEROL SULF 2.5 MG/0.5ML(0.5%) NEB SOLN NEB PRN (18:15)
[2025-04-14] MEDS ORDERED: LORazepam 0.5 MG TAB PO PRN (18:15)
[2025-04-14] MEDS ORDERED: NITROGLYCERIN 0.4 MG SL TAB SL PRN (18:15)
[2025-04-14] MEDS ORDERED: MORPHINE SULFATE INJ 2 MG/ml SYRG IV PRN (18:15)
--- NOTE | 2025-04-14 18:15 | DVHHP2 ---
Patient Family History: Chronic obstructive lung disease (situation) G8 MOTHER Family history: Arthritis G8 MOTHER G8 SISTER Family history: Cardiovascular disease G8 FATHER Family history: Hypertension G8 BROTHER Allergies: Coded Allergies: Acetaminophen (Verified Allergy, Unknown, 03/18/22) Morphine (Verified Allergy, Unknown, 03/18/22) Tetracycline (Verified Allergy, Unknown, 03/18/22) Home Meds Active Scripts Mouthwashes (LISTERINE ULTRACLEAN/EVER) Ultracle Liq, 15 ML MT Q4HP PRN for 7 Days, #400 LIQ Prov:QIAN KESSLER MD 12/20/23 Pantoprazole Sodium Sesquihydr (Protonix) 40 Mg Tab, 40 MG PO DAILY, #30 TAB Prov:QIAN KESSLER MD 12/20/23 Ibuprofen Micronized (MOTRIN TABLET) 600 Mg Tb, 600 MG PO TID for 3 Days, #9 TAB *Black box warning-NSAIDS can increase risk of [place] & hypertension, GI irritation, ulceration, bleed, perferation. Do not use post cardiac surgery. Use short duration/lowest effective dose. Prov:QIAN KESSLER MD 12/20/23 Amoxicillin & Pot Clavulanate (AUGMENTIN TABLET) 875 Mg Tb, 875 MG PO BID for 5 Days, #10 TAB 1 Refill Prov:QIAN KESSLER MD 12/20/23 Amiodarone Hcl (Amiodarone Hcl) 200 Mg Tab, 200 MG PO DAILY for 30 Days, #30 TAB Prov:QIAN KESSLER MD 12/20/23 Calcium Carbonate-Vitamin D (CALTRATE 600+D) +D Chw, 1 TAB OR BID, #100 TAB.CHEW 2 Refills Prov:QIAN KESSLER MD 08/03/22 Oxycodone Hcl (OXYCODONE HCL) 5 Mg Tb, 10 MG PO Q6HP PRN, #60 Prov:QIAN KESSLER MD 03/06/14 Nicotine (Nicoderm 21MG/24HR) 1 Patch Ph, 1 PATCH TD DAILY, #30 APPLIC Prov:QIAN KESSLER MD 03/06/14 Albuterol Sulfate (Ventolin) 2.5 Mg/0.5 Ml Nb, 2.5 MG NEB Q4HPRN PRN for WHEEZING, #60 INH Prov:QIAN KESSLER MD 03/06/14 Reported Medications Albuterol Sulfate (Albuterol Sulfate Hfa) 108 Mcg/Act Aer, INH 12/15/23 Prednisone (Prednisone) 10 Mg Tab, 1 TAB PO DAILY 12/15/23 Sulfasalazine (Azulfidine) 500 Mg Tb, 1 TAB PO DAILY 07/29/22 Amlodipine Besylate (Amlodipine Besylate) 5 Mg Tab, 1 TAB PO DAILY 07/29/22 Lorazepam (ATIVAN TABLET) 0.5 Mg Tb, 0.5 MG PO PRN for prn 03/03/14 Aspirin (Asa) 81 Mg Ch 09/28/10 Vital Signs Vital Signs Date Time Temp Pulse Resp B/P (MAP) Pulse Ox O2 Delivery O2 Flow Rate FiO2 04/14/25 16:17 72 18 134/80 (98) 97 04/14/25 12:41 99.2 99.2 SEPSIS Sepsis Screen Date sepsis recognized/suspect: Apr 14, 2025 Time Sepsis recognized/suspect: 1240 Recent Procedure: No On Antibiotic Therapy: No Respiratory Rate >20: No Heart Rate >90: No Temp<36 C (96.8 F) or >38.3 C: No SBP <90 or MAP <65 mmHG: No New Acute Mental Status Change: No Is the patient on CPAP, BIPAP,: No Physician Orders Ct Ab Pel Wo Con-No Oral Or Iv (04/14/25 13:03) Heplock Iv (04/14/25 13:03) Electrocardigram (04/14/25 13:03) Admit (04/14/25 18:03) Nitroglycerin Sublingual (Ntrostat Subli (04/14/25 18:15) Morphine Sulfate Injection (04/14/25 18:15) Stat Ekg For Chest Pain (04/14/25 18:03) Notify Of Changes From Base (04/14/25 18:03) Branch Customer Service Representative For 24 Hours (04/14/25 18:03) Emergency Dysrhythmia Protocol (04/14/25 18:03) Rhythm Strips Once Every Shift (04/14/25 18:03) Oxygen By Nasal Cannula (04/14/25 18:03) Vital Signs Date Time Temp Pulse Resp B/P (MAP) Pulse Ox O2 Delivery O2 Flow Rate FiO2 04/14/25 16:17 72 18 134/80 (98) 97 04/14/25 12:41 99.2 86 18 148/72 99 99.2 Laboratory Tests Test 04/14/25 13:30 White Blood Count 3.4 10^3/uL (4.4-10.8) L Results Labs Test 04/14/25 16:19 04/14/25 13:30 Range/Units Urine Color Yellow Yellow Urine Clarity Ex.turbid Clear Urine pH 7.5 5.0-9.0 Urine Specific [place] 1.016 1.001-1.035 Urine Protein Trace H Negative Urine Ketones Negative Negative Urine Blood Negative Negative /uL Urine Nitrite Negative Negative Urine Bilirubin Negative Negative Urine Urobilinogen Normal Negative mg/dL Urine Leukocyte Esterase Negative Negative /uL Urine RBC 2 0 - 4 /hpf Urine WBC Clumps Present None Seen /hpf Urine Microscopic WBC < 1 0-5 /HPF Urine Squamous Epithelial Cells Mod <5 /hpf Urine Triple Phosphate Crystals Mod None Seen /hpf Urine Amorphous Crystals Few None Seen /hpf Urine Bacteria None seen None Seen /hpf Urine Glucose Normal Normal mg/dL White Blood Count 3.4 L 4.4-10.8 10^3/uL Red Blood Count 4.98 4.0-5.20 10^6/uL Hemoglobin 12.1 L 12.2-16.2 g/dL Hematocrit 37.4 36.0-46.0 % Mean Corpuscular Volume 75.2 L 80.0-100.0 fL Mean Corpuscular Hemoglobin 24.3 L 28.0-32.0 pg Mean Corpuscular Hemoglobin Concent 32.3 32.0-36.0 g/dL Red Cell Distribution Width 14.8 H 11.8-14.3 % Platelet Count 187 140-450 10^3/uL Mean Platelet Volume 8.8 6.9-10.8 fL Neutrophils (%) (Auto) 67.4 37.0-80.0 % Lymphocytes (%) (Auto) 19.8 10.0-50.0 % Monocytes (%) (Auto) 11.8 0.0-12.0 % Eosinophils (%) (Auto) 0.5 0.0-7.0 % Basophils (%) (Auto) 0.5 0.0-2.0 % Neutrophils # (Auto) 2.3 1.6-8.6 10 ^3/uL Lymphocytes # (Auto) 0.7 0.4-5.4 10 ^3/uL Monocytes # (Auto) 0.4 0-1.3 10 ^3/uL Eosinophils # (Auto) 0 0-0.8 10 ^3/uL Basophils # (Auto) 0 0-0.2 10 ^3/uL Nucleated Red Blood Cells 0.4 % Sodium Level 142 136-145 mmol/L Potassium Level 3.8 3.5-5.1 mmol/L Chloride Level 106 98-107 mmol/L Carbon Dioxide Level 25 20-31 mmol/L Anion Gap 11 5-15 Blood Urea Nitrogen 12 9-23 mg/dL Creatinine 0.81 0.550-1.02 mg/dL Glomerular Filtration Rate Calc 78 >90 mL/min BUN/Creatinine Ratio 14.8 10.0-20.0 Serum Glucose 111 H 74-106 mg/dL Calcium Level 9.3 8.7-10.4 mg/dL Total Bilirubin 0.4 0.2-1.0 mg/dL Aspartate Amino Transferase (AST) 19 13-40 U/L Alanine Aminotransferase (ALT) 18 7-40 U/L Alkaline Phosphatase 69 46-116 U/L Troponin I High Sensitivity < 3 L </=34 ng/L Total Protein 7.9 5.7-8.2 g/dL Albumin 4.3 3.2-4.8 g/dL QIAN KESSLER MD Apr 14, 2025 18:15
[2025-04-14 18:35] VITALS: O2SAT 97
[2025-04-14 19:37] VITALS: PULSE 71; RESP 14; O2SAT 97
[2025-04-14] MEDS ORDERED: CEFEPIME 1GM/50ML 50 ML IV SCH (22:00)
[2025-04-14 22:09] VITALS: PULSE 76; RESP 19
[2025-04-14] MEDS: SOD CHL 0.45% 1,000 ML IV ONE (22:41)
[2025-04-14] MEDS: CEFEPIME 2GM/50ML NS 50 ML IV ONE (22:41)
[2025-04-15] VITALS (11 sets, daily range): BP systolic 123–148; BP diastolic 73–88; PULSE 60–78; RESP 16–20; TEMP 98.4–100.3; O2SAT 94–98
[2025-04-15] MEDS: HYDROmorphone HCL 2 MG/ML VL/or syr IV PRN ×2 (05:02→13:51)
[2025-04-15 06:42] LABS: Hematocrit 39.4 % (36.0-46.0); Hemoglobin 12.0 g/dL (12.2-16.2); Mean Corpuscular Hemoglobin 24.0 pg (28.0-32.0); Mean Corpuscular Volume 79.1 fL (80.0-100.0)
[2025-04-15 06:56] LABS: Alanine Aminotransferase 18 U/L (7-40); Alkaline Phosphatase 65 U/L (46-116); Amylase 56 U/L (30-118); Calcium 8.8 mg/dL (8.7-10.4); Carbon Dioxide 27 mmol/L (20-31); Chloride 106 mmol/L (98-107)
[2025-04-15 06:57] LABS: Albumin 4.0 g/dL (3.2-4.8); Anion Gap 9 (5-15); BUN/Creatinine Ratio 18.9 (10.0-20.0); Bilirubin, Total 0.5 mg/dL (0.2-1.0); Blood Urea Nitrogen 14 mg/dL (9-23); Glucose 84 mg/dL (74-106); Potassium 3.7 mmol/L (3.5-5.1); Sodium 142 mmol/L (136-145); Total Protein 7.0 g/dL (5.7-8.2)
[2025-04-15 07:26] LABS: Anisocytosis Slight; Total Cells Counted 100.0 (100)
[2025-04-15] MEDS: AMIODARONE HCL 200 MG TAB PO SCH (09:19)
[2025-04-15] MEDS: NICOTINE 21MG/24 HR TOPICAL PATCH TD SCH (09:21)
[2025-04-15] MEDS ORDERED: PANTOPRAZOLE 40 MG TAB PO SCH (10:00)
[2025-04-15 11:21] LABS: INR 1.08 (0.9-1.15); Partial Thromboplastin Time 27.9 SEC (24.5-34.5); Prothrombin Time 11.4 sec (9.3-11.8)
[2025-04-15] MEDS: CEFEPIME 2GM/50ML NS 50 ML IV SCH ×2 (11:35→15:45)
--- NOTE | 2025-04-15 21:57 | DVHPN2 ---
Progress Note - Dictate Subjective patient received hida scan results are pending vital signs Vital Sign Date Time Temp Pulse Resp B/P (MAP) Pulse Ox O2 Delivery O2 Flow Rate FiO2 04/15/25 21:05 69 17 134/86 04/15/25 20:40 98 Room Air* 0 21 04/15/25 16:47 98.7 98.7 Total Intake and Output 04/14/25 04/14/25 04/15/25 15:00 23:00 07:00 Intake Total 300 ml Output Total 0 ml Balance 300 ml medications Current Medications Medications Dose Ordered Sig/Meghan Route Start Time Stop Time Status Last Admin Dose Admin Nitroglycerin 0.4 mg Q5MINP PRN SL 04/14/25 18:15 Albuterol 2.5 mg Q4HPRN PRN NEB 04/14/25 18:15 Amiodarone HCl 200 mg DAILY PO 04/15/25 10:00 04/15/25 09:19 200 MG Amlodipine Besylate 5 mg DAILY PO 04/15/25 10:00 04/15/25 09:19 5 MG Aspirin 81 mg DAILY PO 04/15/25 10:00 04/15/25 09:19 81 MG Lorazepam 0.5 mg Q8H PRN PO 04/14/25 18:15 Nicotine 1 patch DAILY TD 04/15/25 10:00 04/15/25 09:21 1 PATCH Cefepime HCl 50 ml @ 50 mls/hr Q8HR IV 04/14/25 22:00 UNV Metronidazole 100 ml @ 100 mls/hr Q8HR IV 04/14/25 22:00 04/15/25 21:01 100 MLS/HR Oxycodone HCl 10 mg Q6HP PRN PO 04/14/25 23:30 04/15/25 15:53 10 MG Hydromorphone HCl 0.6 mg Q6HP PRN IV 04/14/25 23:30 04/15/25 21:05 0.6 MG Hydromorphone HCl 0.8 mg Q6HP PRN IV 04/14/25 23:30 04/15/25 13:51 0.8 MG Cefepime HCl 50 ml @ 12.5 mls/hr Q12H IV 04/15/25 15:00 04/15/25 15:45 12.5 MLS/HR laboratory and microbiology Laboratory Tests 04/15/25 05:52 Test 04/15/25 05:52 Range/Units Serum Glucose 84 74-106 mg/dL Assessment/Plan acute abdominal pains R/o acute cholecystiis Pancytopenia QIAN KESSLER MD Apr 15, 2025 21:57
--- NOTE | 2025-04-15 23:45 | DVHINCON2 ---
Consultation - Surgical Date Seen: Apr 15, 2025 Referring Physician Reason for Consultation Abdominal pain History of Present Illness History of Present Illness Mrs. Zapata is a 70-year-old female who presented to the ED due to periumbilical pain. Patient states that a week away go she felt a hernia popped out through her belly button. This is brand new, as she never had a hernia there before. States that she got scared because she kept noticing that bulging in the belly button and decided to come to the ED. Denies any nausea, vomiting, obstructive symptoms. No other complaints at this time. States that she does not have any abdominal pain. Allergies and medications Allergies: Coded Allergies: Acetaminophen (Verified Allergy, Unknown, 03/18/22) Morphine (Verified Allergy, Unknown, 03/18/22) Tetracycline (Verified Allergy, Unknown, 03/18/22) Home Meds Active Scripts Mouthwashes (LISTERINE ULTRACLEAN/EVER) Ultracle Liq, 15 ML MT Q4HP PRN for 7 Days, #400 LIQ Prov:QIAN KESSLER MD 12/20/23 Pantoprazole Sodium Sesquihydr (Protonix) 40 Mg Tab, 40 MG PO DAILY, #30 TAB Prov:QIAN KESSLER MD 12/20/23 Ibuprofen Micronized (MOTRIN TABLET) 600 Mg Tb, 600 MG PO TID for 3 Days, #9 TAB *Black box warning-NSAIDS can increase risk of OH & hypertension, GI irritation, ulceration, bleed, perferation. Do not use post cardiac surgery. Use short duration/lowest effective dose. Prov:QIAN KESSLER MD 12/20/23 Amoxicillin & Pot Clavulanate (AUGMENTIN TABLET) 875 Mg Tb, 875 MG PO BID for 5 Days, #10 TAB 1 Refill Prov:QINA KESSLER MD 12/20/23 Amiodarone Hcl (Amiodarone Hcl) 200 Mg Tab, 200 MG PO DAILY for 30 Days, #30 TAB Prov:QAIN KESSLER MD 12/20/23 Calcium Carbonate-Vitamin D (CALTRATE 600+D) +D Chw, 1 TAB OR BID, #100 TAB.CHEW 2 Refills Prov:QIAN KESSLER MD 08/03/22 Oxycodone Hcl (OXYCODONE HCL) 5 Mg Tb, 10 MG PO Q6HP PRN, #60 Prov:QIAN KESSLER MD 03/06/14 Nicotine (Nicoderm 21MG/24HR) 1 Patch Ph, 1 PATCH TD DAILY, #30 APPLIC Prov:QIAN KESSLER MD 03/06/14 Albuterol Sulfate (Ventolin) 2.5 Mg/0.5 Ml Nb, 2.5 MG NEB Q4HPRN PRN for WHEEZING, #60 INH Prov:QIAN KESSLER MD 03/06/14 Reported Medications Albuterol Sulfate (Albuterol Sulfate Hfa) 108 Mcg/Act Aer, INH 12/15/23 Prednisone (Prednisone) 10 Mg Tab, 1 TAB PO DAILY 12/15/23 Sulfasalazine (Azulfidine) 500 Mg Tb, 1 TAB PO DAILY 07/29/22 Amlodipine Besylate (Amlodipine Besylate) 5 Mg Tab, 1 TAB PO DAILY 07/29/22 Lorazepam (ATIVAN TABLET) 0.5 Mg Tb, 0.5 MG PO PRN for prn 03/03/14 Aspirin (Asa) 81 Mg Ch 09/28/10 Review of systems Review of Systems: Deferred Examination Vital signs Vital Signs Date Time Temp Pulse Resp B/P (MAP) Pulse Ox O2 Delivery O2 Flow Rate FiO2 04/15/25 21:35 78 20 139/86 04/15/25 21:09 100.3 95 100.3 04/15/25 20:40 Room Air* 0 21 Medications Current Medications Medications (Trade) Dose Ordered Sig/Meghan Route PRN Reason Start Time Stop Time Status Last Admin Amiodarone HCl (Cordarone Tablet) 200 mg DAILY PO 04/15/25 10:00 04/15/25 09:19 Amlodipine Besylate (Norvasc Tablet) 5 mg DAILY PO 04/15/25 10:00 04/15/25 09:19 Aspirin 81 mg DAILY PO 04/15/25 10:00 04/15/25 09:19 Nicotine (Nicoderm 21MG/ 24HR) 1 patch DAILY TD 04/15/25 10:00 04/15/25 09:21 Pantoprazole Sodium (Protonix Tablet) 40 mg DAILY PO 04/15/25 10:00 04/14/25 18:52 DC Cefepime HCl 50 ml @ 12.5 mls/hr Q12H IV 04/15/25 10:00 10/2/25 15:03 DC Cefepime HCl 50 ml @ 12.5 mls/hr Q12H IV 04/15/25 15:00 04/15/25 15:45 Prednisone 10 mg DAILY GT 04/16/25 10:00 Laboratory Labs Test 04/15/25 10:41 04/15/25 05:52 04/14/25 16:19 04/14/25 13:30 Range/Units Prothrombin Time 11.4 9.3-11.8 sec Prothrombin Time INR 1.08 0.9-1.15 Activated Partial Thromboplast Time 27.9 24.5-34.5 SEC White Blood Count 2.4 L 4.4-10.8 10^3/uL Red Blood Count 4.98 4.0-5.20 10^6/uL Hemoglobin 12.0 L 12.2-16.2 g/dL Hematocrit 39.4 36.0-46.0 % Mean Corpuscular Volume 79.1 #L 80.0-100.0 fL Mean Corpuscular Hemoglobin 24.0 L 28.0-32.0 pg Mean Corpuscular Hemoglobin Concent 30.3 L 32.0-36.0 g/dL Red Cell Distribution Width 15.3 H 11.8-14.3 % Platelet Count 97 L 140-450 10^3/uL Mean Platelet Volume 8.8 6.9-10.8 fL Neutrophils (%) (Auto) 37.0-80.0 % Lymphocytes (%) (Auto) 10.0-50.0 % Monocytes (%) (Auto) 0.0-12.0 % Basophils (%) (Auto) 0.0-2.0 % Neutrophils # (Auto) 1.6-8.6 10 ^3/uL Lymphocytes # (Auto) 0.4-5.4 10 ^3/uL Monocytes # (Auto) 0-1.3 10 ^3/uL Differential Total Cells Counted 100.0 100 Neutrophils % (Manual) 29 L 37.0-80.0 Band Neutrophils % (Manual) 2 Lymphocytes % (Manual) 49 10.0-50.0 Monocytes % (Manual) 19 H 0-12 Eosinophils % (Manual) 1 0-7 Basophils % (Manual) 0 0.0-2.0 Metamyelocytes % (manual) 0 Myelocytes % (Manual) 0 Promyelocytes % (Manual) 0 Blast Cells % (Manual) 0 Reactive Lymphocytes 0 Platelet Estimate Decreased Hypochromasia (manual) Moderate Anisocytosis (manual) Slight Microcytosis Slight Sodium Level 142 136-145 mmol/L Potassium Level 3.7 3.5-5.1 mmol/L Chloride Level 106 98-107 mmol/L Carbon Dioxide Level 27 20-31 mmol/L Anion Gap 9 5-15 Blood Urea Nitrogen 14 9-23 mg/dL Creatinine 0.74 0.550-1.02 mg/dL Glomerular Filtration Rate Calc 86 >90 mL/min BUN/Creatinine Ratio 18.9 10.0-20.0 Serum Glucose 84 74-106 mg/dL Calcium Level 8.8 8.7-10.4 mg/dL Total Bilirubin 0.5 0.2-1.0 mg/dL Aspartate Amino Transferase (AST) 25 13-40 U/L Alanine Aminotransferase (ALT) 18 7-40 U/L Alkaline Phosphatase 65 46-116 U/L Total Protein 7.0 5.7-8.2 g/dL Albumin 4.0 3.2-4.8 g/dL Amylase Level 56 30-118 U/L Urine Color Yellow Yellow Urine Clarity Ex.turbid Clear Urine pH 7.5 5.0-9.0 Urine Specific [place] 1.016 1.001-1.035 Urine Protein Trace H Negative Urine Ketones Negative Negative Urine Blood Negative Negative /uL Urine Nitrite Negative Negative Urine Bilirubin Negative Negative Urine Urobilinogen Normal Negative mg/dL Urine Leukocyte Esterase Negative Negative /uL Urine RBC 2 0 - 4 /hpf Urine WBC Clumps Present None Seen /hpf Urine Microscopic WBC < 1 0-5 /HPF Urine Squamous Epithelial Cells Mod <5 /hpf Urine Triple Phosphate Crystals Mod None Seen /hpf Urine Amorphous Crystals Few None Seen /hpf Urine Bacteria None seen None Seen /hpf Urine Glucose Normal Normal mg/dL Eosinophils (%) (Auto) 0.5 0.0-7.0 % Eosinophils # (Auto) 0 0-0.8 10 ^3/uL Basophils # (Auto) 0 0-0.2 10 ^3/uL Nucleated Red Blood Cells 0.4 % Troponin I High Sensitivity < 3 L </=34 ng/L Examination: GENERAL:Normal, ABDOMEN:Normal (Nondistended, soft, depressible, umbilical hernia fat containing and easily reducible, nontender) Problem List/Assessment/Plan Problems: (1) Umbilical hernia Assessment and Plan Mrs. Zapata is a 70-year-old female who presented to the ED due to new found hernia approximately 1 week ago, she got scared because he kept noticing the bulging coming out of her belly button and we she is not normal for her. At the moment of the interview patient is not having any abdominal pain and has never had any obstructive symptoms from this hernia. Hernia is fat containing and easily reducible. Therefore patient does not require any emergency surgery for this umbilical hernia. Patient can follow-up outpatient for elective hernia rep air. Patient is not complaining of any other symptoms. 1. Please provide Dr. Singh's information for possible elective hernia repair surgery 2. Okay for discharge from surgical standpoint 3. I will sign off please call with any questions or concerns Plan discussed with Plan discussed with: Patient Visit Coding Surgery Date of Service if different f: Apr 15, 2025 Billing Provider: ANA CRISTINA RÍOS MD Surgery Visit Codes: 59428 - INP CONSULT <110 MIN ANA CRISTINA RÍOS MD Apr 15, 2025 23:45
[2025-04-16] VITALS (9 sets, daily range): BP systolic 124–143; BP diastolic 80–88; PULSE 69–89; RESP 18–20; TEMP 97.5–100.3; O2SAT 94–97
[2025-04-16 07:53] LABS: Hematocrit 37.0 % (36.0-46.0); Hemoglobin 11.9 g/dL (12.2-16.2); Mean Corpuscular Hemoglobin 23.9 pg (28.0-32.0); Mean Corpuscular Volume 74.4 fL (80.0-100.0)
[2025-04-16 08:01] LABS: Alanine Aminotransferase 17 U/L (7-40); Albumin 4.1 g/dL (3.2-4.8); Alkaline Phosphatase 65 U/L (46-116); Anion Gap 10 (5-15); BUN/Creatinine Ratio 14.1 (10.0-20.0); Blood Urea Nitrogen 11 mg/dL (9-23); Calcium 8.8 mg/dL (8.7-10.4); Carbon Dioxide 24 mmol/L (20-31); Chloride 106 mmol/L (98-107); Cholesterol 119 mg/dL (< 200); Glucose 99 mg/dL (74-106); HDL Cholesterol 39 mg/dL (40-59); Magnesium 2.0 mg/dL (1.6-2.6); Potassium 3.5 mmol/L (3.5-5.1); Sodium 140 mmol/L (136-145); Total Protein 7.5 g/dL (5.7-8.2); Triglycerides 77 mg/dL (< 150)
[2025-04-16 08:02] LABS: Bilirubin, Total 0.6 mg/dL (0.2-1.0)
[2025-04-16 09:21] LABS: Total Cells Counted 100.0 (100)
[2025-04-16] MEDS: prednisoLONE 15 MG/5 ML ORAL UD GT SCH (09:33)
--- NOTE | 2025-04-16 23:50 | DVHPN2 ---
Progress Note - Dictate Date Seen: Apr 16, 2025 Subjective patient received hida scan results are pending Patient continues to have neutropenia pancytopenia Currently receiving pain management, IV fluids and IV antibiotics Reviewed overnight clinical events including abnormal lab and imaging study results while making rounds with patient's assigned RN on day of service vital signs Vital Sign Date Time Temp Pulse Resp B/P (MAP) Pulse Ox O2 Delivery O2 Flow Rate FiO2 04/16/25 21:00 97.7 74 18 124/80 (95) 95 97.7 04/16/25 20:51 Room Air 0.0 04/16/25 20:51 21 Total Intake and Output 04/15/25 04/15/25 04/16/25 15:00 23:00 07:00 Intake Total 325 ml 480 ml Balance 325 ml 480 ml medications Current Medications Medications Dose Ordered Sig/Meghan Route Start Time Stop Time Status Last Admin Dose Admin Nitroglycerin 0.4 mg Q5MINP PRN SL 04/14/25 18:15 Albuterol 2.5 mg Q4HPRN PRN NEB 04/14/25 18:15 Amiodarone HCl 200 mg DAILY PO 04/15/25 10:00 04/16/25 09:33 200 MG Amlodipine Besylate 5 mg DAILY PO 04/15/25 10:00 04/16/25 09:33 5 MG Aspirin 81 mg DAILY PO 04/15/25 10:00 04/16/25 09:32 81 MG Lorazepam 0.5 mg Q8H PRN PO 04/14/25 18:15 Nicotine 1 patch DAILY TD 04/15/25 10:00 04/16/25 09:33 1 PATCH Cefepime HCl 50 ml @ 50 mls/hr Q8HR IV 04/14/25 22:00 UNV Metronidazole 100 ml @ 100 mls/hr Q8HR IV 04/14/25 22:00 04/16/25 21:18 100 MLS/HR Oxycodone HCl 10 mg Q6HP PRN PO 04/14/25 23:30 04/16/25 21:18 10 MG Hydromorphone HCl 0.6 mg Q6HP PRN IV 04/14/25 23:30 04/16/25 04:44 0.6 MG Hydromorphone HCl 0.8 mg Q6HP PRN IV 04/14/25 23:30 04/16/25 18:53 0.8 MG Cefepime HCl 50 ml @ 12.5 mls/hr Q12H IV 04/15/25 15:00 04/16/25 15:00 12.5 MLS/HR Prednisone 10 mg DAILY GT 04/16/25 10:00 04/16/25 09:33 10 MG laboratory and microbiology Laboratory Tests 04/16/25 07:00 Test 04/16/25 07:00 Range/Units Serum Glucose 99 74-106 mg/dL Assessment/Plan acute abdominal pains R/o acute cholecystiis Pancytopenia Medical decision making The patient remains hemodynamically stable afebrile * Continued patient on IV antibiotics and pain management * Currently followed by general surgery * HIDA scan results are pending * Reviewed lab results-vitamin B12 and folic acid are within normal range Noted improvement in neutropenia and thrombocytopenia-seems to be responding to prednisone * Etiologic cause of pancytopenia remains unclear at present time * Awaiting to receive hematology consultation Treatment plans Check CBC CMP Await for hematology consult Increased dose of prednisone 10 mg p.o. every 8 hours Continue IV antibiotics Continue IV fluids Continue pain management Reviewed input of general surgery, imaging study results and lab test QIAN KESSLER MD Apr 16, 2025 23:50
[2025-04-17] VITALS (11 sets, daily range): BP systolic 119–131; BP diastolic 66–88; PULSE 59–88; RESP 16–20; TEMP 97.2–98.5; O2SAT 94–99
[2025-04-17] MEDS: prednisoLONE 15 MG/5 ML ORAL UD GT SCH
[2025-04-17] MEDS: PANTOPRAZOLE 40 MG/10 ML VIAL INJ IV SCH (09:36)
[2025-04-17] MEDS: prednisoLONE 15 MG/5 ML ORAL UD PO SCH (14:57)
--- NOTE | 2025-04-17 17:41 | DVHPN2 ---
Progress Note - Dictate Date Seen: Apr 17, 2025 Subjective patient received hida scan results are pending Patient continues to have neutropenia pancytopenia Currently receiving pain management, IV fluids and IV antibiotics Reviewed overnight clinical events including abnormal lab and imaging study results while making rounds with patient's assigned RN on day of service vital signs Vital Sign Date Time Temp Pulse Resp B/P (MAP) Pulse Ox O2 Delivery O2 Flow Rate FiO2 04/17/25 17:00 97.8 72 18 121/78 (92) 97 97.8 04/17/25 12:07 Room Air* 0 21 Total Intake and Output 04/16/25 04/16/25 04/17/25 15:00 23:00 07:00 Intake Total 100 ml 386 ml 100 ml Balance 100 ml 386 ml 100 ml medications Current Medications Medications Dose Ordered Sig/Meghan Route Start Time Stop Time Status Last Admin Dose Admin Nitroglycerin 0.4 mg Q5MINP PRN SL 04/14/25 18:15 Albuterol 2.5 mg Q4HPRN PRN NEB 04/14/25 18:15 Amiodarone HCl 200 mg DAILY PO 04/15/25 10:00 04/17/25 09:37 200 MG Amlodipine Besylate 5 mg DAILY PO 04/15/25 10:00 04/17/25 09:37 5 MG Aspirin 81 mg DAILY PO 04/15/25 10:00 04/17/25 09:37 81 MG Lorazepam 0.5 mg Q8H PRN PO 04/14/25 18:15 Nicotine 1 patch DAILY TD 04/15/25 10:00 04/17/25 09:36 1 PATCH Cefepime HCl 50 ml @ 50 mls/hr Q8HR IV 04/14/25 22:00 UNV Metronidazole 100 ml @ 100 mls/hr Q8HR IV 04/14/25 22:00 04/17/25 12:55 100 MLS/HR Oxycodone HCl 10 mg Q6HP PRN PO 04/14/25 23:30 04/17/25 12:55 10 MG Hydromorphone HCl 0.6 mg Q6HP PRN IV 04/14/25 23:30 04/16/25 04:44 0.6 MG Hydromorphone HCl 0.8 mg Q6HP PRN IV 04/14/25 23:30 04/17/25 16:01 0.8 MG Pantoprazole Sodium 40 mg DAILY IV 04/17/25 10:00 04/17/25 09:36 40 MG Ceftriaxone Sodium 50 ml @ 100 mls/hr DAILY IV 04/17/25 10:00 04/17/25 09:36 100 MLS/HR Prednisone 10 mg Q8HR PO 04/17/25 14:00 04/17/25 14:57 10 MG laboratory and microbiology Laboratory Tests 04/16/25 07:00 Test 04/16/25 07:00 Range/Units Serum Glucose 99 74-106 mg/dL Assessment/Plan acute abdominal pains R/o acute cholecystiis Pancytopenia Medical decision making The patient remains hemodynamically stable afebrile * Continued patient on IV antibiotics and pain management * Currently followed by general surgery * HIDA scan results are pending * Reviewed lab results-vitamin B12 and folic acid are within normal range Noted improvement in neutropenia and thrombocytopenia-seems to be responding to prednisone * Etiologic cause of pancytopenia remains unclear at present time * Recommmended to receive hematology consultation Treatment plans Discharge patient home today Check CBC CMP Await for out patienyhematology consult Increased dose of prednisone 10 mg p.o. every 8 hours Continue IV antibiotics Continue IV fluids Continue pain management Reviewed input of general surgery, imaging study results and lab test Dietary Evaluation Review Recommendations by RD: Dietary education by RD Comments: 1) Continue cardiac diet 2) Initiate Ensure High Protein qd 3) Refer to outpatient RD for weight management 4) Follow-up with general surgeon 5) Continue to monitor I&O, labs, and skin integrity Expected Outcomes/Goals: 1) appetite and labs to improve 2) gradual wt loss 3) f/u in 3-5 days Total Time (mins): 60 QIAN KESSLER MD Apr 17, 2025 17:41
--- NOTE | 2025-04-17 17:43 | DVHDS2 ---
Discharge Summary Date of Admission Apr 14, 2025 at 18:03 Date of Discharge: Apr 17, 2025 Admitting Diagnosis acute abdominal pains 1. R/o strangulation of umbilical hernia 2. R/o Acute cholecystitis 3. Hypovolemia Labs/Diagnostic Data: Laboratory Results Test 04/16/25 07:00 04/15/25 10:41 04/15/25 05:52 04/14/25 16:19 White Blood Count 2.8 10^3/uL (4.4-10.8) Red Blood Count 4.98 10^6/uL (4.0-5.20) Hemoglobin 11.9 g/dL (12.2-16.2) Hematocrit 37.0 % (36.0-46.0) Mean Corpuscular Volume 74.4 fL (80.0-100.0) Mean Corpuscular Hemoglobin 23.9 pg (28.0-32.0) Mean Corpuscular Hemoglobin Concent 32.1 g/dL (32.0-36.0) Red Cell Distribution Width 14.1 % (11.8-14.3) Platelet Count 150 10^3/uL (140-450) Mean Platelet Volume 9.2 fL (6.9-10.8) Neutrophils (%) (Auto) % (37.0-80.0) Lymphocytes (%) (Auto) % (10.0-50.0) Monocytes (%) (Auto) % (0.0-12.0) Basophils (%) (Auto) % (0.0-2.0) Neutrophils # (Auto) 10 ^3/uL (1.6-8.6) Lymphocytes # (Auto) 10 ^3/uL (0.4-5.4) Monocytes # (Auto) 10 ^3/uL (0-1.3) Differential Total Cells Counted 100.0 (100) Neutrophils % (Manual) 50 (37.0-80.0) Band Neutrophils % (Manual) 0 Lymphocytes % (Manual) 27 (10.0-50.0) Monocytes % (Manual) 22 (0-12) Eosinophils % (Manual) 1 (0-7) Basophils % (Manual) 0 (0.0-2.0) Metamyelocytes % (manual) 0 Myelocytes % (Manual) 0 Promyelocytes % (Manual) 0 Blast Cells % (Manual) 0 Reactive Lymphocytes 0 Platelet Estimate Adequate Hypochromasia (manual) Moderate Microcytosis Moderate Sodium Level 140 mmol/L (136-145) Potassium Level 3.5 mmol/L (3.5-5.1) Chloride Level 106 mmol/L (98-107) Carbon Dioxide Level 24 mmol/L (20-31) Anion Gap 10 (5-15) Blood Urea Nitrogen 11 mg/dL (9-23) Creatinine 0.78 mg/dL (0.550-1.02) Glomerular Filtration Rate Calc 81 mL/min (>90) BUN/Creatinine Ratio 14.1 (10.0-20.0) Serum Glucose 99 mg/dL (74-106) Calcium Level 8.8 mg/dL (8.7-10.4) Phosphorus Level 2.9 mg/dL (2.4-5.1) Magnesium Level 2.0 mg/dL (1.6-2.6) Total Bilirubin 0.6 mg/dL (0.2-1.0) Aspartate Amino Transferase (AST) 22 U/L (13-40) Alanine Aminotransferase (ALT) 17 U/L (7-40) Alkaline Phosphatase 65 U/L (46-116) Total Protein 7.5 g/dL (5.7-8.2) Albumin 4.1 g/dL (3.2-4.8) Triglycerides Level 77 mg/dL (< 150) Cholesterol Level 119 mg/dL (< 200) LDL Cholesterol 70 mg/dL (< 100) HDL Cholesterol 39 mg/dL (40-59) Vitamin B12 Level 2359 pg/mL (211-911) Folic Acid > 48.00 ng/mL (>5.38) Prothrombin Time 11.4 sec (9.3-11.8) Prothrombin Time INR 1.08 (0.9-1.15) Activated Partial Thromboplast Time 27.9 SEC (24.5-34.5) Anisocytosis (manual) Slight Amylase Level 56 U/L (30-118) Urine Color Yellow (Yellow) Urine Clarity Ex.turbid (Clear) Urine pH 7.5 (5.0-9.0) Urine Specific [place] 1.016 (1.001-1.035) Urine Protein Trace (Negative) Urine Ketones Negative (Negative) Urine Blood Negative /uL (Negative) Urine Nitrite Negative (Negative) Urine Bilirubin Negative (Negative) Urine Urobilinogen Normal mg/dL (Negative) Urine Leukocyte Esterase Negative /uL (Negative) Urine RBC 2 /hpf (0 - 4) Urine WBC Clumps Present /hpf (None Seen) Urine Microscopic WBC < 1 /HPF (0-5) Urine Squamous Epithelial Cells Mod /hpf (<5) Urine Triple Phosphate Crystals Mod /hpf (None Seen) Urine Amorphous Crystals Few /hpf (None Seen) Urine Bacteria None seen /hpf (None Seen) Urine Glucose Normal mg/dL (Normal) Test 04/14/25 13:30 Eosinophils (%) (Auto) 0.5 % (0.0-7.0) Eosinophils # (Auto) 0 10 ^3/uL (0-0.8) Basophils # (Auto) 0 10 ^3/uL (0-0.2) Nucleated Red Blood Cells 0.4 % Troponin I High Sensitivity < 3 ng/L (</=34) Other Laboratory Tests 04/16/25 07:00 Final Diagnosis/Problems List 1. acute abdominal pains a/ umbilical hernia w/o strangualtion 2. Cholelithiasis 3. Pancytopenia from inadvertent effect of antibiotics 4. Hypovolemia 5. COPD 6. Fairly well controlled hypertension Discharge Disposition: Home Discharge Instruct/Medications Diet: Cardiac 2g Na,low cholest Diet comment: 1800 roby ADA Cardiac 2g Na,low cholest diet Activity: Light activity Follow Up/Referral: Dr Tessie Robertson in 5 days Medications: Pl refer to D/s meds Scheduled Amiodarone Hcl (Amiodarone Hcl), 200 MG PO DAILY Amlodipine Besylate (Amlodipine Besylate), 1 TAB PO DAILY, (Reported) Amoxicillin & Pot Clavulanate (Augmentin Tablet), 875 MG PO BID Calcium Carbonate-Vitamin D (Caltrate 600+D), 1 TAB OR BID Ibuprofen Micronized (Motrin Tablet), 600 MG PO TID Nicotine (Nicoderm 21MG/24HR), 1 PATCH TD DAILY Pantoprazole Sodium Sesquihydr (Protonix), 40 MG PO DAILY Prednisone (Prednisone), 1 TAB PO DAILY, (Reported) Sulfasalazine (Azulfidine), 1 TAB PO DAILY, (Reported) Scheduled PRN Albuterol Sulfate (Ventolin), 2.5 MG NEB Q4HPRN PRN for WHEEZING Lorazepam (Ativan Tablet), 0.5 MG PO for prn, (Reported) Mouthwashes (Listerine Ultraclean/Ever), 15 ML MT Q4HP PRN Oxycodone Hcl (Oxycodone Hcl), 10 MG PO Q6HP PRN Miscellaneous Medications Albuterol Sulfate (Albuterol Sulfate Hfa), INH, (Reported) Aspirin (Asa), (Reported) Discharge Statement: "Patient was advised to return to the ER or call 911 if any headaches, dizziness, shortness of breath, chest pain, abdominal pain, bleeding, fevers, or worsening of medical condition. Patient was counseled about treatment plan, medications, possible side effects, patientverbalized understanding. All questions were answered to the best of my ability. This discharge took greater then 30 minutes in planning, reviewing documentation, counseling the patient, and discussing with other team members." ASSESSMENT ASSESSMENT Assessment 1. acute abdominal pains a/ umbilical hernia w/o strangualtion 2. Cholelithiasis 3. Pancytopenia from inadvertent effect of antibiotics 4. Hypovolemia 5. COPD 6. Fairly well controlled hypertension QIAN ROBERTSON MD Apr 17, 2025 17:43
[2025-04-17 18:24] LABS: Hemoglobin 11.5 g/dL (12.2-16.2); Nucleated Red Blood Cells % 0.1 %
[2025-04-17 18:25] LABS: Hematocrit 36.2 % (36.0-46.0); Mean Corpuscular Hemoglobin 23.7 pg (28.0-32.0); Mean Corpuscular Volume 74.7 fL (80.0-100.0)
[2025-04-17 18:30] LABS: Anion Gap 12 (5-15); Carbon Dioxide 23 mmol/L (20-31); Potassium 3.6 mmol/L (3.5-5.1); Sodium 144 mmol/L (136-145)
[2025-04-17 18:31] LABS: Calcium 8.7 mg/dL (8.7-10.4); Chloride 109 mmol/L (98-107)
[2025-04-17 18:36] LABS: BUN/Creatinine Ratio 13.8 (10.0-20.0); Blood Urea Nitrogen 11 mg/dL (9-23)
[2025-04-17 18:37] LABS: Amylase 58 U/L (30-118)
[2025-04-17 18:38] LABS: Glucose 143 mg/dL (74-106)
== END 2025-04-17 20:43 | disposition home or self-care (01) | DRG 394 ==
LOC: EDBD 12:33 → ER 12:33 → OVERFLOW 18:03 → EAST 20:37
PROVIDERS: ADMIT Specialist; ATTEND Specialist
DX: K42.9 Umbilical hernia without obstruction or gangrene (principal); D61.818 Other pancytopenia; K80.20 Calculus of gallbladder without cholecystitis without obstruction; E11.9 Type 2 diabetes mellitus without complications; E86.1 Hypovolemia; F17.210 Nicotine dependence, cigarettes, uncomplicated; I11.0 Hypertensive heart disease with heart failure; I25.10 Atherosclerotic heart disease of native coronary artery without angina pectoris; I48.91 Unspecified atrial fibrillation; I50.9 Heart failure, unspecified; J44.9 Chronic obstructive pulmonary disease, unspecified; Z82.49 Family history of ischemic heart disease and other diseases of the circulatory system; Z82.5 Family history of asthma and other chronic lower respiratory diseases; Z88.1 Allergy status to other antibiotic agents; Z88.5 Allergy status to narcotic agent; Z88.6 Allergy status to analgesic agent; Z90.710 Acquired absence of both cervix and uterus; Z79.899 Other long term (current) drug therapy
CPT/HCPCS: 36415; 74176; 80048; 80053; 80061; 81001; 82150; 82607; 82746; 83735; 84100; 84484; 85007; 85025; 85027; 85610; 85730; 86141; G0378; J0692; J2470; J3490; J7510